=== PATIENT | male | born 1955 | race Caucasian/White ===

== ENCOUNTER → 2020-10-11 10:28 | Outpatient (BNVA) | payer OTHER, SELFPAY | PROVIDERS: PCP Internal Medicine; Referring Provider Internal Medicine; Visit Provider Internal Medicine | DX: Z13.89 Encounter for screening for other disorder (principal) ==

== ENCOUNTER → 2020-10-18 10:16 | Outpatient (BNVA) | payer OTHER, SELFPAY | PROVIDERS: PCP Internal Medicine; Visit Provider Hospitalist | DX: Z76.89 Persons encountering health services in other specified circumstances (principal) ==

== ENCOUNTER → 2021-01-07 13:12 | Outpatient (BNVA) | payer OTHER, SELFPAY | PROVIDERS: PCP Internal Medicine; Visit Provider Hospitalist ==

== ENCOUNTER → 2021-01-17 10:34 | Outpatient (BNVA) | payer OTHER, SELFPAY | PROVIDERS: PCP Internal Medicine; Visit Provider Hospitalist | DX: K21.9 Gastro-esophageal reflux disease without esophagitis (principal); J44.0 Chronic obstructive pulmonary disease with (acute) lower respiratory infection ==

== ENCOUNTER → 2022-02-03 10:29 | Outpatient (BNVA) | payer OTHER, SELFPAY | PROVIDERS: PCP Internal Medicine; Visit Provider Internal Medicine Pulmonary Disease ==

== ENCOUNTER 2022-02-07 10:56 | Outpatient (REF) | payer OTHER, SELFPAY ==
--- NOTE | ~2022-02-07 | XR_ITS ---
EXAMINATION: XR CHEST CLINICAL INFORMATION: COPD COMPARISON: None TECHNIQUE: 2 views of the chest were obtained. FINDINGS: The cardiac and mediastinal contours are normal. The lungs are well inflated. The lungs are clear. There is no pleural effusion or pneumothorax. There are degenerative changes of the spine. There are old left rib fractures. There are bilateral shoulder prostheses. XR/XR chest 2V IMPRESSION: Well-inflated lungs. No evidence for acute disease in the chest.
== END 2022-02-07 10:57 | disposition home or self-care (01) ==
LOC: HO.XRAY 10:56
PROVIDERS: PCP Internal Medicine; Visit Provider Hospitalist
DX: J44.1 Chronic obstructive pulmonary disease with (acute) exacerbation (principal)
CPT/HCPCS: 71046

== ENCOUNTER → 2022-02-16 11:34 | Outpatient (BNVA) | payer OTHER, SELFPAY | PROVIDERS: PCP Internal Medicine; Visit Provider Hospitalist | DX: J41.8 Mixed simple and mucopurulent chronic bronchitis (principal); Z87.891 Personal history of nicotine dependence | CPT/HCPCS: 99212 ==

== ENCOUNTER → 2022-03-07 12:58 | Outpatient (BNVA) | payer OTHER, SELFPAY | PROVIDERS: PCP Internal Medicine; Visit Provider Hospitalist | DX: Z13.89 Encounter for screening for other disorder (principal) ==

== ENCOUNTER → 2022-04-26 10:42 | Outpatient (BNVA) | payer OTHER, SELFPAY | PROVIDERS: PCP Internal Medicine; Visit Provider Hospitalist | DX: J44.9 Chronic obstructive pulmonary disease, unspecified (principal) ==

== ENCOUNTER 2022-05-12 14:18 | Outpatient (REF) | payer OTHER, SELFPAY | END 2022-05-12 14:19 | disposition home or self-care (01) | LOC: HO.LNP 14:18 | PROVIDERS: Visit Provider Hospitalist | DX: Z13.89 Encounter for screening for other disorder (principal) ==

== ENCOUNTER 2022-05-25 08:30 | Day surgery (SDC) | payer OTHER, SELFPAY ==
--- NOTE | 2022-05-24 10:11 | HO.ANESPROP2 ---
Documented by User: Dena Nolen NP 05/24/22 10:12 HPI - Anesthesia Eval Consult details Narrative: 67yo M for Bronchoscopy Fiberoptic [facility] Active Problems Active Problems: All Active Problems (Updated 03/07/22 @ 13:18 by Andrew Saha MD) Bronchitis (Acute) COPD exacerbation (Acute) COPD (chronic obstructive pulmonary disease) (Acute) Smoker (Acute) COPD (chronic obstructive pulmonary disease) (Acute) Mixed simple and mucopurulent chronic bronchitis (Acute) Past Medical History Medical History Bronchitis COPD (chronic obstructive pulmonary disease) Mixed simple and mucopurulent chronic bronchitis Smoker Social History Social History Patient Tobacco Use Status: Current everyday Tobacco user Tobacco use type: Cigarette Cigarette Packs Per Day: 0.5 Cigarettes Per Day: 10 Use of substances other than those prescribed or required for medical reasons: No Are you DNR?: No Advance Directives: No Advance Directives Information Provided: Yes Meds Allergies Allergy/AdvReac Type Severity Reaction Status Date / Time bupropion [From Wellbutrin] AdvReac Severe Seizure Verified 05/12/22 13:27 Home Medications Medication Instructions Recorded Confirmed Last Taken Type sertraline 100 mg tablet 100 mg PO DAILY 10/11/20 01/17/21 Unknown History hydroxyzine HCl 25 mg tablet 25 mg PO TID 01/07/21 01/17/21 Unknown History lorazepam 0.5 mg tablet 0.5 mg PO BID 05/12/22 01/17/21 Unknown History Exam Exam Date and Time: May 24, 2022 1011 Assessment and Plan Assessment Anesthesia Assessment: Chart Reviewed Documented by User: Yfn Rosario MD 05/25/22 09:28 [facility] Past Medical History Medical History Bronchitis COPD (chronic obstructive pulmonary disease) Mixed simple and mucopurulent chronic bronchitis Smoker Family History Family history of problems with anesthesia: No Surgical History History of Problems with Anesthesia: No Social History Social History Patient Tobacco Use Status: Current everyday Tobacco user Tobacco use type: Cigarette Cigarette Packs Per Day: 0.5 Cigarettes Per Day: 10 Use of substances other than those prescribed or required for medical reasons: No Are you DNR?: No Advance Directives: No Advance Directives Information Provided: Yes Meds Allergies Allergy/AdvReac Type Severity Reaction Status Date / Time bupropion [From Wellbutrin] AdvReac Severe Seizure Verified 05/12/22 13:27 Home Medications Medication Instructions Recorded Confirmed Last Taken Type sertraline 100 mg tablet 100 mg PO DAILY 10/11/20 01/17/21 Unknown History hydroxyzine HCl 25 mg tablet 25 mg PO TID 01/07/21 01/17/21 Unknown History lorazepam 0.5 mg tablet 0.5 mg PO BID 05/12/22 01/17/21 Unknown History Exam Airway Mallampati Class: I TM Dist: >3cm Neck ROM: Full Denture: Upper and Lower Heart: rrr Lungs: clear Assessment and Plan Final Anesthetic Review Family History of Problems with Anesthesia: No History of Problems with Anesthesia: No NPO: Yes ASA Class: III Final Preanesthetic Review: No Changes in Pt Med Stat, Meds/Allgs Chart Reviewed, Consent Obtained/Reviewed and Anes Risks/Benef Reviewed Patient Risk: Intermediate Procedure Risk: Low Anesthetic Plan Anesthetic Plan: GA Disposition: Standard PACU
[2022-05-25] VITALS (10 sets, daily range): BP systolic 121–142; BP diastolic 64–90; PULSE 90–110; RESP 17–23; TEMP 36–37.2; O2SAT 89–96; BMI 31.1
--- NOTE | ~2022-05-25 | XR_ITS ---
EXAMINATION: XR CHEST CLINICAL INFORMATION: Post bronchoscopy. COMPARISON: 02/07/2022. TECHNIQUE: AP view of the chest was obtained. FINDINGS: Stable appearance of the cardiomediastinal silhouette. Diffuse interstitial prominence with some questionable more focal hazy opacities in the medial right lower lobe. No pleural effusion or pneumothorax. Partially imaged bilateral shoulder arthroplasties. XR/XR chest 1V IMPRESSION: Diffuse interstitial prominence with equivocal more focal opacities in the medial right base. Findings are nonspecific and could be associated with bronchitis, reactive airways disease or atypical infections with an early developing infiltrate/aspiration in the right base.
[2022-05-25] MEDS: Lactated Ringers 1,000 ML 100 ML IVCONT (09:00)
--- NOTE | 2022-05-25 09:20 | MHC.SHP ---
Pre-Procedural Eval Section A Date of Service: 05/25/22 The patient is an INPATIENT: No Changes since office visit: No Cold of Flu in the past 2 weeks, No New Medical Problems, No Changes in Medication and No Patient answered all questions Section B Chief Complaint: pneumonia Allergies: Allergies Allergy/AdvReac Type Severity Reaction Status Date / Time bupropion [From Wellbutrin] AdvReac Severe Seizure Verified 05/12/22 13:27 Plan I have reviewed the history and physical and performed a pertinent physical examination on my patient. No changes have occurred unless specified.
[2022-05-25] MEDS: Albuterol/Iprat 2.5/0.5MG 3 ML AMPUL.NEB INHALE (11:05)
--- NOTE | 2022-05-26 23:10 | OP_ITS ---
SURGEON: Andrew Saha MD PREOPERATIVE DIAGNOSIS: Pneumonia. POSTOPERATIVE DIAGNOSIS: Pneumonia. No evidence of any endobronchial disease. PROCEDURE PERFORMED: ESTIMATED BLOOD LOSS: COMPLICATIONS: ANESTHESIA: General anesthesia. ASSISTANTS: SPECIMENS: INDICATION: Abnormal chest x-ray. DESCRIPTION OF PROCEDURE: After the patient was sedated and intubated, the flexible digital bronchoscope was inserted over the ET tube to the level of the trachea. The main case appeared to be normal. The patient did have some inflammation of the endobronchial mucosa with some evidence of chronic airway disease as well. The airways were evaluated up to the subsegmental level without any evidence of any endobronchial lesions or masses. He did have some increased swelling over the mucosa of the right upper lobe. The anterior segment where the pneumonia was found to be located in the question of a postobstructive process was indeed patent without any evidence of any foreign body or endobronchial disease. The apical segment appeared to have some degree of bronchomalacia and otherwise was dynamic, but no evidence of any foreign bodies or growth. The posterior segment appeared to be intact. The bronchoscope was navigated to the right upper lobe, where both micro and cytologic brushings introduced into the right upper lobe to the appropriate locations. Also, right-sided washings were also collected, sent for microbiology and also cytology. Using forceps, transbronchial biopsies were collected from the right upper lobe, primarily the anterior segment, also some endobronchial biopsies were also done. Specimens sent in formalin to the pathology lab. No evidence of any significant bleeding noted. The bronchoscope was then removed. The total endoscopic time was approximately 15 minutes. The patient tolerated the procedure well. Vital signs were stable throughout the procedure. No complications. MD FERNANDO Bauer/MODL / [id number]
--- NOTE | 2022-05-27 23:33 | PM.OP ---
Brief Operative Note Date of Service: 05/27/22 Pre-op diagnosis: pneumonia Post-op diagnosis: same Procedure: bronchsocopy with transbronchial biopsies, brushings and washings Surgeon: Andrew Saha MD Anesthesia: GETA Was an Toll Collector Supervisor used for this Procedure?: No Estimated blood loss (mL): 0 Pathology: other (RUL transbronchial and bronchial biopsies) Condition: stable Disposition: same day
== END 2022-05-25 12:32 | disposition home or self-care (01) ==
PROVIDERS: PCP Internal Medicine; Visit Provider Hospitalist
PROC: 0BJ08ZZ Inspection of Tracheobronchial Tree, Via Natural or Artificial Opening Endoscopic (ICD-10-PCS; CPT 31622; principal; 2022-05-25 09:30)
DX: J44.0 Chronic obstructive pulmonary disease with (acute) lower respiratory infection (principal); F17.210 Nicotine dependence, cigarettes, uncomplicated; J41.8 Mixed simple and mucopurulent chronic bronchitis; J18.9 Pneumonia, unspecified organism; J45.998 Other asthma; R06.02 Shortness of breath; Z79.51 Long term (current) use of inhaled steroids; Z79.52 Long term (current) use of systemic steroids; Z79.899 Other long term (current) drug therapy; Z88.8 Allergy status to other drugs, medicaments and biological substances
CPT/HCPCS: 31623; 31628; 31625; 71045; 87071; 87102; 87116; 87205; 88112; 88305; 94640; J0171; J0330; J1100; J2250; J2370; J2405; J3010

== ENCOUNTER 2023-02-02 08:56 | Outpatient (REF) | payer MEDICARE, SELFPAY ==
--- NOTE | 2023-02-02 13:10 | PFT_ITS ---
INDICATION: COPD. SPIROMETRY: FEV1 to FVC of 44% with an FEV1 of 1.46 L, which is 47% predicted and FVC of 3.33 L, which is 79% predicted. There was a significant response to bronchodilators noted. Maximum voluntary ventilation 36% predicted. LUNG VOLUMES: Total lung capacity 104% predicted with a residual volume of 182% predicted and an expiratory residual volume of 17% predicted. DIFFUSION CAPACITY: DLCO 56% predicted. COMPARISON: 2019. INTERPRETATION: There is an obstructive ventilatory defect consistent with severe COPD. There was a significant response to bronchodilators noted, also severe decrease in the maximum voluntary ventilation secondary to deconditioning and also worsen dynamic inspiratory capacity. Lung volumes with significant air trapping due to the COPD and there is some [id number] diffusion impairment. When compare to 2020, there is a significant decrease in the FVC, significant decrease in the FEV1. No significant change in total lung capacity and a trend increase in a diffusion capacity. Clinical correlation warranted. MD FERNANDO Bauer/MODL / [id number]
== END 2023-02-02 08:57 | disposition home or self-care (01) ==
LOC: HO.RESP 08:56
PROVIDERS: PCP Internal Medicine; Visit Provider Hospitalist
DX: J44.0 Chronic obstructive pulmonary disease with (acute) lower respiratory infection (principal)
CPT/HCPCS: 94060; 94727; 94729

== ENCOUNTER 2023-03-21 09:32 | Outpatient (REF) | payer MEDICARE, SELFPAY | END 2023-03-21 09:33 | disposition home or self-care (01) | LOC: HO.XRAY 09:32 | PROVIDERS: PCP Internal Medicine; Visit Provider Hospitalist | DX: J18.9 Pneumonia, unspecified organism (principal); J44.9 Chronic obstructive pulmonary disease, unspecified; F17.200 Nicotine dependence, unspecified, uncomplicated; Z71.6 Tobacco abuse counseling | CPT/HCPCS: 99212 ==

== ENCOUNTER 2023-07-10 08:35 | Outpatient (AMB) | payer MEDICARE, SELFPAY ==
[2023-07-10 08:43] VITALS: BP 128/70; PULSE 85; O2SAT 92; BMI 32.8
--- NOTE | 2023-07-10 08:43 | A.OFFVIS_ITS ---
Intake Vital Signs 07/10/23 08:43 Height 5 ft 8 in Weight 216 lb 0.848 oz BMI 32.8 BP 128/70 Blood Pressure Location Lt brachial Position Sitting Pulse 85 Pulse Source Pulse Oximeter Pulse Oximetry (%) 92 Oxygen Delivery Method Room Air Intake Visit Reasons: wheeze Senior Analyst Required: No Allergies bupropion [From Wellbutrin] Adverse Reaction (Severe, Verified 07/10/23 08:46) Seizure HPI HPI Comments History of Present Illness Details 68-year-old gentleman with known tobacco dependency and COPD. Still see continues to have productive cough with yellowish sputum. Moderate a mount. He also complains of dyspnea on exertion. He feels that he has been doing less because he does 1 get dyspneic. We talked about the importance of exercise. At this point the patient continues to smoke. He is motivated to quitting but is still having hard time doing so. Still having hard time with the smoking. He does have the Nicorette gum at home and is going to start using it. He has cut down significantly. He states that when he was younger he was smoking 4 packs a day now he is down to less than a pack. Explained to him the goals to should be to complete completely. He is getting dyspneic so therefore we did of 6 minutes walk test the patient does not qualify for oxygen supplementation. 03/21/2023 the patient is here for a pulmonary follow-up visit. Overall the patient is doing well. He denies any weight loss or night sweats or chest pain. I am concerned about his last CT scan demonstrating the masslike consolidation. He did undergo bronchoscopy without any evidence of any malignancy. He was also treated with antibiotics. However I do not see any post treatment imaging studies. I will request a chest x-ray. In addition to this I will look into of his next CT scan scheduled to the lung cancer screening program. If his chest x-ray is abnormal going to request a CT scan of the chest. He continues to smoke cigarettes. He has been trying to cut down. He has been struggling with that. He does continue to use his respiratory medications as prescribed. He also has oxygen at home but he has not been using it. I will go ahead and discontinue it at this time. If he becomes more symptomatic we can always retest to see if he needs it. 07/10/2023 the patient is here for pulmonary follow-up visit. He continues have difficulty with breathing. He recently status some prednisone. He is having worsening productive cough with yellowish phlegm. Sometimes the cough and the congestion wakes him up in the Sleep. Patient stands that is likely all from the smoking. The patient has had bad pneumonia in the past. Will go ahead and start on doxycycline. Did not respond to azithromycin. The patient also needs some prednisone as he is having wheezing. We did talk about his lung cancer screening CT scan. I do believe he is due for July of 2023. I will have our Lung Cancer program look into his neck state. Otherwise if his symptoms worsen we may have to move up the CT scan. The patient denies any significant weight loss or night sweats. Denies hemoptysis. Unfortunately continues smoking cigarettes. [facility]LY [facility] Medical History Bronchitis COPD (chronic obstructive pulmonary disease) Mixed simple and mucopurulent chronic bronchitis Smoker Social History Patient Tobacco Use Status: Current everyday Tobacco user Tobacco use type: Cigarette Cigarette Packs Per Day: 0.5 Cigarettes Per Day: 10 Review of Systems Const Denies daytime sleepiness, Denies excessive sweating, Denies fatigue, Denies fever(s), Denies lethargy, Denies malaise, Denies night sweats, Denies snoring and Denies weight loss Eyes Denies blurry vision and Denies itchy eyes ENT Denies nasal congestion, Denies post nasal drip, Denies sinus pain, Denies sinus pressure and Denies other ( Thrush) Card Denies chest pain, Denies pedal edema, Denies dyspnea, Denies orthopnea and Denies paroxysmal nocturnal dyspnea Resp Reports change in phlegm color, Reports chest congestion, Reports cough, Denies hemoptysis, Denies excessive phlegm production, Denies dyspnea, Denies snoring and Reports wheezing GI Denies abdominal pain and Denies heartburn Musc Denies myalgias, Denies arthralgias and Denies joint swelling Skin/Breast Denies rash Neuro Denies memory loss and Denies seizure-like activity Psych Denies abnormal sleep pattern, Denies anxiety and Denies memory loss Endo Denies excessive sweating, Denies fatigue and Denies heat intolerance Zak/Lymph Denies easy bruising Aller/Immun Denies itchy eyes, Denies seasonal rhinorrhea and Reports wheezing Physical Exam Vital Signs: Last Vital Signs Pulse 85 07/10/23 08:43 BP 128/70 07/10/23 08:43 Pulse Ox 92 07/10/23 08:43 Oxygen Delivery Method Room Air 07/10/23 08:43 BMI result Body Mass Index 32.8 Const General: alert Neck Neck: Yes normal visual inspection, Yes full ROM and Yes no lymphadenopathy Chest Chest palpation & inspection: normal inspection of the chest Resp Auscultation: rhonchi, wheezes and diminished lung sounds Cardio Rate: regular rate Rhythm: regular rhythm Heart sounds: S1 normal heart sound present and S2 normal heart sound present GI Palpation (GI): Soft to palpation and nontender Auscultation: normal bowel sounds Skin General skin exam: rashes and/or lesions noted Assessment & Plan Assessment & Plan (1) COPD (chronic obstructive pulmonary disease): Code(s): J44.9 - Chronic obstructive pulmonary disease, unspecified Qualifiers: COPD type: COPD with acute lower respiratory infection Qualified Code(s): J44.0 - Chronic obstructive pulmonary disease with (acute) lower respiratory infection (2) Smoker: Code(s): F17.200 - Nicotine dependence, unspecified, uncomplicated (3) Mixed simple and mucopurulent chronic bronchitis: Code(s): J41.8 - Mixed simple and mucopurulent chronic bronchitis (4) Pneumonia: Code(s): J18.9 - Pneumonia, unspecified organism Plan continue Duoneb QID continue Symbicort continue Daliresp 500 start Doxyxycline restart Prednisone with slow taper Discontinue oxygen Nicotene gum as needed LDCT lung cancer screening program at [facility] F/U 4-6 months Medications: New doxycycline monohydrate 100 mg PO BID 21 days 42 tabs 0RF prednisone 20 mg (2 x 10 mg) PO DAILY 30 days 60 tabs 2RF Refilled ipratropium-albuterol 0.5 mg-3 mg(2.5 mg base)/3 mL 3 mL inhalation BID 30 days 180 mL 11RF J44.9 - Chronic obstructive pulmonary disease, unspecified Quality Reporting (2019) Adult ([facility] 13801/17/69) Smoking risk assessment performed?: Yes Patient Tobacco Use Status: Current everyday Tobacco user Coding Level of Care Code Est Pt Level 4 (63268) Diagnoses COPD (chronic obstructive pulmonary disease) J44.0 COPD type: COPD with acute lower respiratory infection Smoker F17.200 Mixed simple and mucopurulent chronic bronchitis J41.8 Pneumonia J18.9 Time Spent (min) 18
== END 2023-07-10 08:57 | disposition home or self-care (01) ==
PROVIDERS: PCP Internal Medicine; Visit Provider Hospitalist
DX: J44.0 Chronic obstructive pulmonary disease with (acute) lower respiratory infection (principal); F17.200 Nicotine dependence, unspecified, uncomplicated; J18.9 Pneumonia, unspecified organism
CPT/HCPCS: 99214

== ENCOUNTER → 2023-07-10 08:35 | Outpatient (BNVA) | payer MEDICARE, SELFPAY | PROVIDERS: PCP Internal Medicine; Visit Provider Hospitalist | DX: J44.0 Chronic obstructive pulmonary disease with (acute) lower respiratory infection (principal); J18.9 Pneumonia, unspecified organism; J41.8 Mixed simple and mucopurulent chronic bronchitis; F17.210 Nicotine dependence, cigarettes, uncomplicated; Z79.899 Other long term (current) drug therapy | CPT/HCPCS: 99212 ==

== ENCOUNTER 2023-09-04 10:02 | Outpatient (AMB) | payer MEDICARE, SELFPAY ==
[2023-09-04 10:07] VITALS: PULSE 88; O2SAT 93; BMI 30.4
--- NOTE | 2023-09-04 10:07 | MHC.OFFVIS ---
Intake Vital Signs 09/04/23 10:07 Height 5 ft 8 in Weight 200 lb BMI 30.4 Pulse 88 Pulse Source Pulse Oximeter Pulse Oximetry (%) 93 Oxygen Delivery Method Room Air Intake Visit Reasons: wheeze Delinquency Prevention Officer Required: No Allergies bupropion [From Wellbutrin] Adverse Reaction (Severe, Verified 09/04/23 10:08) Seizure HPI HPI Comments History of Present Illness Details 68-year-old gentleman with known tobacco dependency and COPD. Still see continues to have productive cough with yellowish sputum. Moderate a mount. He also complains of dyspnea on exertion. He feels that he has been doing less because he does 1 get dyspneic. We talked about the importance of exercise. At this point the patient continues to smoke. He is motivated to quitting but is still having hard time doing so. Still having hard time with the smoking. He does have the Nicorette gum at home and is going to start using it. He has cut down significantly. He states that when he was younger he was smoking 4 packs a day now he is down to less than a pack. Explained to him the goals to should be to complete completely. He is getting dyspneic so therefore we did of 6 minutes walk test the patient does not qualify for oxygen supplementation. 03/21/2023 the patient is here for a pulmonary follow-up visit. Overall the patient is doing well. He denies any weight loss or night sweats or chest pain. I am concerned about his last CT scan demonstrating the masslike consolidation. He did undergo bronchoscopy without any evidence of any malignancy. He was also treated with antibiotics. However I do not see any post treatment imaging studies. I will request a chest x-ray. In addition to this I will look into of his next CT scan scheduled to the lung cancer screening program. If his chest x-ray is abnormal going to request a CT scan of the chest. He continues to smoke cigarettes. He has been trying to cut down. He has been struggling with that. He does continue to use his respiratory medications as prescribed. He also has oxygen at home but he has not been using it. I will go ahead and discontinue it at this time. If he becomes more symptomatic we can always retest to see if he needs it. 07/10/2023 the patient is here for pulmonary follow-up visit. He continues have difficulty with breathing. He recently status some prednisone. He is having worsening productive cough with yellowish phlegm. Sometimes the cough and the congestion wakes him up in the Sleep. Patient stands that is likely all from the smoking. The patient has had bad pneumonia in the past. Will go ahead and start on doxycycline. Did not respond to azithromycin. The patient also needs some prednisone as he is having wheezing. We did talk about his lung cancer screening CT scan. I do believe he is due for July of 2023. I will have our Lung Cancer program look into his neck state. Otherwise if his symptoms worsen we may have to move up the CT scan. The patient denies any significant weight loss or night sweats. Denies hemoptysis. Unfortunately continues smoking cigarettes. 09/04/2023 the patient is here for a pulmonary follow-up visit. The patient overall has been doing better. He still come he is to smoke cigarettes although he is cutting down. He is off the prednisone altogether. The patient continues in his respiratory therapy with good effect. He did have a CT scan of the chest to the lung cancer screening program in July 2023 demonstrating stable findings with unchanged pulmonary nodules. The patient will continue with current respiratory therapy will continue to cut down completely until he stops smoking. If the patient has any issues prior to the next visit he is to call for an earlier appointment otherwise follow-up in the 2023. [facility] Medical History Bronchitis COPD (chronic obstructive pulmonary disease) Mixed simple and mucopurulent chronic bronchitis Smoker Social History Patient Tobacco Use Status: Current everyday Tobacco user Tobacco use type: Cigarette Cigarette Packs Per Day: 0.5 Cigarettes Per Day: 10 Review of Systems Const Denies daytime sleepiness, Denies excessive sweating, Denies fatigue, Denies fever(s), Denies lethargy, Denies malaise, Denies night sweats, Denies snoring and Denies weight loss Eyes Denies blurry vision and Denies itchy eyes ENT Denies nasal congestion, Denies post nasal drip, Denies sinus pain, Denies sinus pressure and Denies other ( Thrush) Card Denies chest pain, Denies pedal edema, Denies dyspnea, Denies orthopnea and Denies paroxysmal nocturnal dyspnea Resp Reports change in phlegm color, Reports chest congestion, Reports cough, Denies hemoptysis, Denies excessive phlegm production, Denies dyspnea, Denies snoring and Reports wheezing GI Denies abdominal pain and Denies heartburn Musc Denies myalgias, Denies arthralgias and Denies joint swelling Skin/Breast Denies rash Neuro Denies memory loss and Denies seizure-like activity Psych Denies abnormal sleep pattern, Denies anxiety and Denies memory loss Endo Denies excessive sweating, Denies fatigue and Denies heat intolerance Zak/Lymph Denies easy bruising Aller/Immun Denies itchy eyes, Denies seasonal rhinorrhea and Reports wheezing Physical Exam Vital Signs: Last Vital Signs Pulse 88 09/04/23 10:07 Pulse Ox 93 09/04/23 10:07 Oxygen Delivery Method Room Air 09/04/23 10:07 BMI result Body Mass Index 30.4 Const General: alert Neck Neck: Yes normal visual inspection, Yes full ROM and Yes no lymphadenopathy Chest Chest palpation & inspection: normal inspection of the chest Resp Effort & Inspection: normal respiratory effort Auscultation: rhonchi, wheezes and diminished lung sounds Cardio Rate: regular rate Rhythm: regular rhythm Heart sounds: S1 normal heart sound present and S2 normal heart sound present GI Palpation (GI): Soft to palpation and nontender Auscultation: normal bowel sounds Skin General skin exam: rashes and/or lesions noted Assessment & Plan Assessment & Plan (1) COPD (chronic obstructive pulmonary disease): Code(s): J44.9 - Chronic obstructive pulmonary disease, unspecified Qualifiers: COPD type: COPD with acute lower respiratory infection Qualified Code(s): J44.0 - Chronic obstructive pulmonary disease with (acute) lower respiratory infection (2) Smoker: Code(s): F17.200 - Nicotine dependence, unspecified, uncomplicated (3) Mixed simple and mucopurulent chronic bronchitis: Code(s): J41.8 - Mixed simple and mucopurulent chronic bronchitis Plan continue Duoneb QID continue Symbicort continue Daliresp 500 Nicotene gum as needed LDCT lung cancer screening program at [facility] F/U 6-8 months Quality Reporting (2019) Adult ([facility] 138/01/17/69) Smoking risk assessment performed?: Yes Patient Tobacco Use Status: Current everyday Tobacco user Coding Level of Care Code Est Pt Level 4 (86668) Diagnoses Chronic obstructive pulmonary disease with acute lower respiratory infection J44.0 COPD type: COPD with acute lower respiratory infection Smoker F17.200 Mixed simple and mucopurulent chronic bronchitis J41.8 Time Spent (min) 16
== END 2023-09-04 10:26 | disposition home or self-care (01) ==
PROVIDERS: PCP Internal Medicine; Visit Provider Hospitalist
DX: J44.0 Chronic obstructive pulmonary disease with (acute) lower respiratory infection (principal); F17.200 Nicotine dependence, unspecified, uncomplicated
CPT/HCPCS: 99214

== ENCOUNTER → 2023-09-04 10:02 | Outpatient (BNVA) | payer MEDICARE, SELFPAY | PROVIDERS: PCP Internal Medicine; Visit Provider Hospitalist | DX: J44.0 Chronic obstructive pulmonary disease with (acute) lower respiratory infection (principal); J41.8 Mixed simple and mucopurulent chronic bronchitis; F17.210 Nicotine dependence, cigarettes, uncomplicated | CPT/HCPCS: 99212 ==

== ENCOUNTER 2025-02-24 15:00 | Outpatient (AMB) | payer MEDICARE, SELFPAY ==
[2025-02-24 15:05] VITALS: BP 110/56; PULSE 89; O2SAT 90; BMI 32.8
--- NOTE | 2025-02-24 15:05 | MHC.OFFVIS ---
Vital Signs 02/24/25 15:05 Height 5 ft 8 in Weight 216 lb 0.848 oz BMI 32.8 BP 110/56 L Blood Pressure Location Rt brachial Position Sitting Pulse 89 Pulse Source Pulse Oximeter Pulse Oximetry (%) 90 L Oxygen Delivery Method Room Air Intake Visit Reasons: COPD Allergies bupropion [From Wellbutrin] Adverse Reaction (Severe, Verified 02/24/25 15:07) Seizure HPI Comments Details: 69-year-old gentleman with known tobacco dependency and COPD. Still see continues to have productive cough with yellowish sputum. Moderate a mount. He also complains of dyspnea on exertion. He feels that he has been doing less because he does 1 get dyspneic. We talked about the importance of exercise. At this point the patient continues to smoke. He is motivated to quitting but is still having hard time doing so. Still having hard time with the smoking. He does have the Nicorette gum at home and is going to start using it. He has cut down significantly. He states that when he was younger he was smoking 4 packs a day now he is down to less than a pack. Explained to him the goals to should be to complete completely. He is getting dyspneic so therefore we did of 6 minutes walk test the patient does not qualify for oxygen supplementation. 03/21/2023 the patient is here for a pulmonary follow-up visit. Overall the patient is doing well. He denies any weight loss or night sweats or chest pain. I am concerned about his last CT scan demonstrating the masslike consolidation. He did undergo bronchoscopy without any evidence of any malignancy. He was also treated with antibiotics. However I do not see any post treatment imaging studies. I will request a chest x-ray. In addition to this I will look into of his next CT scan scheduled to the lung cancer screening program. If his chest x-ray is abnormal going to request a CT scan of the chest. He continues to smoke cigarettes. He has been trying to cut down. He has been struggling with that. He does continue to use his respiratory medications as prescribed. He also has oxygen at home but he has not been using it. I will go ahead and discontinue it at this time. If he becomes more symptomatic we can always retest to see if he needs it. 07/10/2023 the patient is here for pulmonary follow-up visit. He continues have difficulty with breathing. He recently status some prednisone. He is having worsening productive cough with yellowish phlegm. Sometimes the cough and the congestion wakes him up in the Sleep. Patient stands that is likely all from the smoking. The patient has had bad pneumonia in the past. Will go ahead and start on doxycycline. Did not respond to azithromycin. The patient also needs some prednisone as he is having wheezing. We did talk about his lung cancer screening CT scan. I do believe he is due for July of 2023. I will have our Lung Cancer program look into his neck state. Otherwise if his symptoms worsen we may have to move up the CT scan. The patient denies any significant weight loss or night sweats. Denies hemoptysis. Unfortunately continues smoking cigarettes. 09/04/2023 the patient is here for a pulmonary follow-up visit. The patient overall has been doing better. He still come he is to smoke cigarettes although he is cutting down. He is off the prednisone altogether. The patient continues in his respiratory therapy with good effect. He did have a CT scan of the chest to the lung cancer screening program in July 2023 demonstrating stable findings with unchanged pulmonary nodules. The patient will continue with current respiratory therapy will continue to cut down completely until he stops smoking. If the patient has any issues prior to the next visit he is to call for an earlier appointment otherwise follow-up in the springtime of 2023. 02/24/2025 the patient is here for a pulmonary follow-up visit. Overall he is doing fair. He is starting to develop worsening cough chest tightness and wheezing. He is waking up choking with phlegm. Moderate severity. Unfortunately continues to smoke cigarettes. He did try the Wellbutrin previously in the developed a significant seizure. Therefore Chantix would also be relatively contraindicated because the seizure history. The patient has not had a lung cancer screening since 2022. He lost insurance and he has been without any regular care. Will go ahead and refer him to the lung cancer screening program here. In the meantime he needs to be the plans with all his inhalers and respiratory medicines. I will do so. On exam he does have significant wheezing and rhonchi. Will go ahead and start him on azithromycin and also prednisone taper. The patient will continue working on smoking cessation. I will send a Nicorette gum. He did he tried and failed already the nicotine patch. Will follow-up in the fall. If he has any issues prior to that he will call for an earlier assessment. [facility] Medical History Bronchitis COPD (chronic obstructive pulmonary disease) Mixed simple and mucopurulent chronic bronchitis Smoker Social History Patient Tobacco Use Status: Current everyday Tobacco user Tobacco use type: Cigarette Cigarette Packs Per Day: 0.5 Cigarettes Per Day: 10 Review of Systems Const Denies fever(s) Eyes Denies blurry vision and Denies itchy eyes ENT Denies nasal congestion and Denies post nasal drip Card Denies chest pain and Denies dyspnea Resp Reports change in phlegm color, Reports chest congestion, Reports cough, Denies hemoptysis, Denies excessive phlegm production, Denies dyspnea and Reports wheezing GI Denies abdominal pain and Denies heartburn Musc Denies myalgias, Denies arthralgias and Denies joint swelling Skin/Breast Denies rash Neuro Denies memory loss and Denies seizure-like activity Psych Denies abnormal sleep pattern, Denies anxiety and Denies memory loss Endo Denies heat intolerance Zak/Lymph Denies easy bruising Aller/Immun Denies itchy eyes, Denies seasonal rhinorrhea and Reports wheezing Physical Exam Vital Signs: Last Vital Signs Pulse 89 02/24/25 15:05 BP 110/56 L 02/24/25 15:05 Pulse Ox 90 L 02/24/25 15:05 Oxygen Delivery Method Room Air 02/24/25 15:05 BMI result Body Mass Index 32.8 Const General: alert Neck Neck: Yes normal visual inspection, Yes full ROM and Yes no lymphadenopathy Chest Chest palpation & inspection: normal inspection of the chest Resp Effort & Inspection: normal respiratory effort Auscultation: rhonchi, wheezes and diminished lung sounds Cardio Rate: regular rate Rhythm: regular rhythm Heart sounds: S1 normal heart sound present and S2 normal heart sound present GI Palpation (GI): Soft to palpation and nontender Auscultation: normal bowel sounds Skin General skin exam: rashes and/or lesions noted Assessment & Plan Assessment & Plan (1) Smoker: Code(s): F17.200 - Nicotine dependence, unspecified, uncomplicated Category: Social Hx (2) COPD (chronic obstructive pulmonary disease): Code(s): J44.9 - Chronic obstructive pulmonary disease, unspecified Category: Medical Qualifiers: COPD type: COPD with acute lower respiratory infection Qualified Code(s): J44.0 - Chronic obstructive pulmonary disease with (acute) lower respiratory infection (3) Mixed simple and mucopurulent chronic bronchitis: Code(s): J41.8 - Mixed simple and mucopurulent chronic bronchitis Category: Medical Plan continue Duoneb QID continue Symbicort start Azithromycin MWF start prednisone taper Nicotene gum as needed LDCT lung cancer screening program at [facility] previously. Referring to [facility] now F/U 6 months Orders: Referrals Lung Cancer Screening Referral F17.200 - Nicotine dependence, unspecified, uncomplicated Medications: New azithromycin Take 1 tablet on Sunday/Sunday/Sunday 250 mg PO 3XW 12 tabs 1RF 28 days K21.9 - Gastro-esophageal reflux disease without esophagitis nicotine (polacrilex) (Nicorette) 2 mg buccal Q2H 120 ea 5RF 30 days prednisone PO daily; Take 2 tabs daily x 5 days, then 1 tablet daily x 5 days 15 tabs 0RF 10 days Changed From albuterol sulfate 90 mcg/actuation (ProAir HFA) 2 puffs PO Q4-6H PRN 51 grams 3RF for wheezing J41.8 - Mixed simple and mucopurulent chronic bronchitis To albuterol sulfate 90 mcg/actuation 2 puffs PO Q6H PRN 8.5 grams 11RF for wheezing J41.8 - Mixed simple and mucopurulent chronic bronchitis Refilled ipratropium-albuterol 0.5 mg-3 mg(2.5 mg base)/3 mL 3 mL inhalation BID 180 mL 11RF 30 days J44.9 - Chronic obstructive pulmonary disease, unspecified budesonide-formoterol 160-4.5 mcg/actuation (Symbicort) 2 puffs inhalation BID 10.2 grams 11RF 30 days J44.9 - Chronic obstructive pulmonary disease, unspecified Coding Level of Care Code Est Pt Level 4 (26361) Complex EM visit Add On G2211 Diagnoses Smoker F17.200 Chronic obstructive pulmonary disease with acute lower respiratory infection J44.0 COPD type: COPD with acute lower respiratory infection Mixed simple and mucopurulent chronic bronchitis J41.8 Time Spent (min) 18
--- OUTSIDE RECORDS SUMMARY | 2025-02-24 17:51 | XMS_ITS | Patient Health Record ---
Author Organization [facility] Address [address], [place] [id number] Care Team Providers Care Etl Data Architect Name Role Phone No, PCP Primary Care Provider Yanet Arteaga Unavailable [phone] Reason For Referral No Information Encounters Encounter Location Date Provider Diagnosis [facility] [address], [place] [phone] 08/13/2024 Yanet Soriano Plan Of Treatment No Information Insurance Providers Payer Name Payer Address Payer Phone Subscriber Number Group Number Insured Name Patient Relationship to Insured Coverage Start Date Coverage End Date Insurance Pending [address] [facility] [place] [address] Tu Ramon Self - patient is the insured
--- OUTSIDE RECORDS SUMMARY | 2025-02-24 17:51 | XMS_ITS ---
Author Organization [facility] Address [address] [place], [place] [id number] Care Team Providers Care Motor Tune Up Specialist Name Role Phone No, PCP Primary Care Provider Yanet Arteaga Unavailable [phone] REASON FOR VISIT Call [employer] to expedite application Encounters Encounter Location Date Provider Diagnosis [address] [place], [place] [phone] 08/13/2024 Yanet Soriano Plan Of Treatment No Information Progress Notes * Tu RONQUILLODOB: [birth year] (69 yo M)Acc No.[id number]:08/13/2024 Case Management New Patient:?Tu Ronquillo Provider:?Yanet Soriano :1955???Age:69 Y???Sex:Male Yousif e:08/13/2024 Address:[address], [id number] Pcp:PCP No Subjective: * Chief Complaints: * ???1. Call [employer] to ex pedite application. * HPI: ???Social Service:?Action Taken?[employer]? Called [employer] to expedite application. stated that Insurance will be active within 72 hours. 08/13/24 gd2.? Objective: Assessment: Plan: * Treatment: * Images: Billing Information: * Visit Code:? * Procedure Codes:? Care Plan Details* * Sign off status: Completed true * Provider:?Yanet Soriano Date:?08/13/2024 Generated for Margy larry/Eliana/eTransmzaki on:?02/24/2025 05:51 PM EDT History and Physical Notes * HPI (History of Present Illness) Category Sub-Category Detail Notes Social Service Action Taken [facility] : Called [facility] to expedite application. stated that Insurance will be active within 72 hours. 08/13/24 gd2
== END 2025-02-24 15:24 | disposition home or self-care (01) ==
LOC: HO.HPS 15:02
PROVIDERS: PCP Internal Medicine; Visit Provider Hospitalist
DX: F17.200 Nicotine dependence, unspecified, uncomplicated (principal); J44.0 Chronic obstructive pulmonary disease with (acute) lower respiratory infection; J41.8 Mixed simple and mucopurulent chronic bronchitis
CPT/HCPCS: 99214; G2211

== ENCOUNTER → 2025-02-24 15:00 | Outpatient (BNVA) | payer SELFPAY | PROVIDERS: PCP Internal Medicine; Visit Provider Hospitalist | DX: J44.0 Chronic obstructive pulmonary disease with (acute) lower respiratory infection (principal); F41.8 Other specified anxiety disorders; F17.210 Nicotine dependence, cigarettes, uncomplicated | CPT/HCPCS: 99212 ==

== ENCOUNTER 2025-05-15 10:08 | Outpatient (AMB) | payer MEDICARE, SELFPAY ==
--- NOTE | 2025-05-15 07:48 | MHC.OFFVIS ---
Intake Visit Reasons: Current Smoker Allergies bupropion (From Wellbutrin) Adverse Reaction (Severe, Verified 02/24/25 15:07) Seizure HPI HPI Current Smoker: Details: Initial visit for this 70yo smoker with a 50+PYH. Patient started smoking at age 11 for 59 years at 1ppd. Max at 2ppd. Currently at 1ppd. . Denies marijuana use. Denies second hand smoke exposure. Denies exposure to chemicals or substances like asbestos. . Denies known family history of lung cancer. Denies personal history of cancers. . Denies chest CT in last year. Previously in LDCT program at [facility]. Last scan on record 07/2023 was a Lung RADS 2. . Denies recent travel outside the [place]. Denies recent respiratory illness or recent hospitalization for respiratory issues. History testing positive for COVID. Admits receiving COVID Vaccine. . Denies fever, chills, new/worsening cough, hemoptysis, hoarseness or dysphagia. Denies significant chest pain, significant dyspnea or unintentional weight loss. Patient Lung Cancer Screening Questionnaire reviewed with patient by provider. . Shared Decision Making Completed. Patient meets criteria. Discussed in detail with patient, the risk vs benefit of LDCT screening. Patient consents to proceed with scan. Discussed smoking cessation. [facility] Medical History (Updated 05/15/25 @ 10:16 by Audra Vargas PA-C) Nicotine dependence, cigarettes, uncomplicated COPD (chronic obstructive pulmonary disease) Bronchitis Mixed simple and mucopurulent chronic bronchitis Surgical History (Updated 05/15/25 @ 10:18 by Audra Vargas PA-C) History of hand surgery History of bronchoscopy Social History (Updated 05/15/25 @ 10:16 by Audra Vargas PA-C) Patient Tobacco Use Status: Current everyday Tobacco user Tobacco use type: Cigarette Years Smoked: (onset 11yo, 1ppd x 59yrs - 50+PYH) Assessment & Plan Assessment & Plan (1) Nicotine dependence, cigarettes, uncomplicated: Comment: (onset 11yo, 1ppd x 59yrs - 50+PYH) Code(s): F17.210 - Nicotine dependence, cigarettes, uncomplicated Category: Medical Plan: - SDM visit completed today in office. - Patient meets criteria for LDCT for lung cancer screening purposes and is asymptomatic. - Smoking cessation counseling offered. Patients can always call [phone]. - Will arrange for a LDCT scan of the chest for screening purposes at [facility]. - Risks, benefits, and alternatives were discussed in detail and the patient agrees to proceed. - Risks discussed include but are not limited to: radiation exposure, anxiety during testing and while awaiting results, false negatives, false positives and possibility of additional intervention such as further imaging or surgical procedures for benign disease. - Benefits are obviously detection of lung cancer at an early stage which can lead to improved outcomes. - Discussed the importance of screening program compliance with adherence to yearly LDCT scan as scheduled - or sooner interval scans for personalized screening regimen. - Discussed follow up plan. Our office will send a letter discussing results and if needed set up phone call and office visit based on CT findings. - Patient educated on results categorization and the management decisions for suspicious findings potentially found on the screening LDCT scan. Any patient with a Lung RADS score of 3 or 4 will be reviewed by a multidisciplinary team at [facility] to form a plan of action in regards to scan findings. - If further work up is warranted for a suspicious lung finding this will be followed by the Lung Cancer Screening program in conjunction with the Thoracic Surgery Department at [facility]. - A copy of the office note and LDCT will be sent to the patient's PCP - as well as documentation on any associated further plans of care. - Incidental findings on LDCT are the PCP's responsibility. These findings are indicated with an S finding on the LDCT Assessment. A note discussing the findings will be sent to the PCP who is then responsible for further management. - All questions answered.? Coding Level of Care Code Lung Cancer Screening G0296 Diagnoses Nicotine dependence, cigarettes, uncomplicated F17.210
--- OUTSIDE RECORDS SUMMARY | 2025-05-15 10:24 | XMS_ITS | Patient Health Record ---
Author Organization [facility] Address [address], [place] [phone] Care Team Providers Care Distribution Systems Serviceperson Name Role Phone [employer] - DO NOT USE, no PCP Primary Care Prov ider Unavailable Yanet Soriano Unavailable [phone] Reason For Referral No Information Encounters Encounter Location Date Provider Diagnosis [facility] [address], [place] [phone] 08/13/2024 Yanet Soriano Plan Of Treatment No Information Insurance Providers Payer Name Payer Address Payer Phone Subscriber Number Group Number Insured Name Patient Relationship to Insured Coverage Start Date Coverage End Date Insurance Pending [id number] [facility] [place] [id number] Tu Ramon Self - patient is the insured
== END 2025-05-15 10:24 | disposition home or self-care (01) ==
LOC: HO.HPS 10:08
PROVIDERS: PCP Internal Medicine; Referring Provider Hospitalist; Visit Provider Physician Assistant Medical
DX: F17.210 Nicotine dependence, cigarettes, uncomplicated (principal)
CPT/HCPCS: G0296

== ENCOUNTER 2025-05-15 10:24 | Outpatient (REF) | payer MEDICARE, SELFPAY ==
--- NOTE | ~2025-05-15 | CT_ITS ---
CLINICAL HISTORY: F17.210 - Nicotine dependence, cigarettes, uncomplicated CT lung cancer screening (LDCT) Comparison: None provided Technique: Axial CT images of the chest using low-dose technique. Referring provider counseled the patient on shared decision-making for LDCT screening. Additional counseling was provided on smoking cessation. Effective radiation dose total: DLP 66.6 mGycm, CTDIvol 1.9 mGy. Findings: Lung: Mild emphysema. Atelectatic change of the right upper lobe anteriorly. No suspicious pulmonary nodule. Coronary artery calcifications: Severe Limited upper abdomen: Unremarkable Other: None Impression: LungRADS 1: Negative exam. Continue annual screening with low dose Chest CT in 12 months. ##L1## Category 1: Normal; continue annual screening Category 2: Benign appearance or behavior, continue annual screening Category 3: Probably benign, [address] recommended Category 4A: Suspicious, [address] recommended; may consider PET/CT Category 4B: Suspicious, Additional diagnostics and/or tissue sampling recommended Category 4X: Suspicious, Additional diagnostics and/or tissue sampling recommended Category 0: Recalls (incomplete screen due to Incomplete coverage, Noise, Respiratory motion, Expiration, Obscured by acute abnormality) This document has been electronically signed by: Jair Booth MD on 05/15/2025 15:56:27
== END 2025-05-15 10:25 | disposition home or self-care (01) ==
LOC: HO.CT 10:24
PROVIDERS: PCP Internal Medicine; Visit Provider Physician Assistant Medical
DX: Z12.2 Encounter for screening for malignant neoplasm of respiratory organs (principal); F17.210 Nicotine dependence, cigarettes, uncomplicated
CPT/HCPCS: 71271; G0296

== ENCOUNTER → 2025-05-15 10:26 | Outpatient (BNV) | payer MEDICARE, SELFPAY | PROVIDERS: PCP Internal Medicine; Visit Provider Nuclear Medicine | DX: F17.210 Nicotine dependence, cigarettes, uncomplicated (principal) | CPT/HCPCS: 71271 ==

== ENCOUNTER 2025-07-02 13:10 | Outpatient (AMB) | payer MEDICARE, SELFPAY ==
--- NOTE | 2025-07-02 13:13 | MHC.OFFVIS ---
Intake Visit Reasons: elevated PSA Intake Note: Patient is present for ELEVATED PSA Urology Medication:NONE Antibiotic Allergy:NONE Blood Thinner:NONE Construction Coordinator Required: No Allergies bupropion (From Wellbutrin) Adverse Reaction (Severe, Verified 07/02/25 13:44) Seizure Medication List - Last Reconciled 07/02/25 by REN Hassan albuterol sulfate 90 mcg/actuation 2 puffs PO Q6H PRN azithromycin 250 mg PO 3XW 28 days budesonide-formoterol 160-4.5 mcg/actuation (Symbicort) 2 puffs inhalation BID 30 days ipratropium-albuterol 0.5 mg-3 mg(2.5 mg base)/3 mL 3 mL inhalation BID 30 days lorazepam 0.5 mg PO BID nebulizers As directed nicotine (polacrilex) (Nicorette) 2 mg buccal Q2H 30 days Oxygen Home Use As directed prednisone PO daily; Take 2 tabs daily x 5 days, then 1 tablet daily x 5 days 10 days sertraline 150 mg PO DAILY HPI Comments Details: Tu Moreau is a very pleasant 70-year-old male patient of . He has a past medical history of nicotine dependence, COPD, and bronchitis. He presents to the office today as a new patient for an elevated PSA. In discussion with the patient today he reports having followed up with his PCP and having blood work and recommendations were made for urology referral for further assessment evaluation. He does believe he has previously followed up with a urologist however this was many years ago. He is unsure as if he had a prostate biopsy in the past. In review of patient's chart it appears PSA 02/17 4.4. FRANCHESKA was offered however deferred. We did discussed potential causes of elevated PSA as well as further treatment options and risks and benefits of these treatment options. In office urinalysis results reviewed with the patient today. He denies any bothersome urinary issues. He denies any known family history of prostate cancer. He denies urinary urgency, urinary frequency, incontinence, nocturia, hematuria, dysuria, foul smelling urine, changes to urinary stream, flank pain, fever, and or chills. He is happy with his current voiding parameters. [facility] Medical History (Updated 07/02/25 @ 13:49 by REN Hassan) Nicotine dependence, cigarettes, uncomplicated COPD (chronic obstructive pulmonary disease) Bronchitis Mixed simple and mucopurulent chronic bronchitis Surgical History (Updated 05/15/25 @ 10:18 by Audra Vargas PA-C) History of hand surgery History of bronchoscopy Social History (Updated 05/15/25 @ 10:16 by Audra Vargas PA-C) Patient Tobacco Use Status: Current everyday Tobacco user Tobacco use type: Cigarette Years Smoked: (onset 11yo, 1ppd x 59yrs - 50+PYH) Review of Systems Const All systems reviewed & are unremarkable except as noted in HPI and below Physical Exam Const General: cooperative, healthy appearing, comfortable, no acute distress, well developed, alert and awake Orientation/consciousness: patient oriented x3 Limitations: no limitations HEENT Head: Yes normal to inspection, Yes normocephalic and Yes atraumatic Ears: hearing grossly normal bilaterally Eyes General: appearance normal, both eyes and all related structures Neck Neck: Yes normal visual inspection and Yes trachea midline Chest Chest palpation & inspection: normal inspection of the chest Resp Effort & Inspection: normal respiratory effort and able to speak in complete sentences Cardio Rate: regular rate GI Inspection: Yes normal to inspection General: Yes no CVA tenderness Back/Spine/Pelvis Back: no CVA tenderness Skin General skin exam: no rashes or lesions noted Neuro General: patient oriented x3 Extrem General: Yes normal to inspection Psych Appearance: grossly normal and well kempt Mental Status: mental status grossly normal Speech and movement: Normal speech and movement present and Clear speech present Affect: normal affect Attitude: cooperative Thought process: Normal thought process present Thought content: Normal thought content present Insight: Fair insight present (Psych) Judgement: Fair judgement present (Psych) Results AMB Urinalysis, Automated UA Leukoctes 0 Haja/uL Last Edit by JAY Galeana on 07/02/25 13:29 UA Nitrite Negative Last Edit by JAY Galeana on 07/02/25 13:29 UA Urobilinogen 0.2 mg/dL Last Edit by JAY Galeana on 07/02/25 13:29 UA Protein 0 mg/dL Last Edit by JAY Galeana on 07/02/25 13:29 UA pH 5.5 Last Edit by JAY Galeana on 07/02/25 13:29 UA Blood 0 Bandar/uL Last Edit by JAY Galeana on 07/02/25 13:29 UA Specific Gambell 1.010 Last Edit by JAY Galeana on 07/02/25 13:29 UA Ketone Negative Last Edit by JAY Galeana on 07/02/25 13:29 UA Bilirubin 0 mg/dL Last Edit by JAY Galeana on 07/02/25 13:29 UA Glucose 0 mg/dL Last Edit by JAY Galeana on 07/02/25 13:29 Results Reviewed Results Reviewed: Laboratory Last Values Urine pH (Auto) 5.5 07/02/25 13:28 Specific Gambell (Auto) 1.010 07/02/25 13:28 Urine Protein (Auto) 0 mg/dL 07/02/25 13:28 Glucose (UA)(Auto) 0 mg/dL 07/02/25 13:28 Urine Ketones (Auto) Negative 07/02/25 13:28 Urine Blood (Auto) 0 Bandar/uL 07/02/25 13:28 Urine Nitrite (Auto) Negative 07/02/25 13:28 Urine Bilirubin (Auto) 0 mg/dL 07/02/25 13:28 Urine Urobilinogen (Auto) 0.2 mg/dL 07/02/25 13:28 Leukocyte Esterase (Auto) 0 Haja/uL 07/02/25 13:28 Assessment & Plan Assessment & Plan (1) Elevated PSA: Code(s): R97.20 - Elevated prostate specific antigen [PSA] Category: Medical Plan In office urinalysis results reviewed with the patient today; as noted above. Most recent PSA results reviewed with the patient today; as noted above. We did discussed potential causes of elevated PSA as well as further treatment options and risks and benefits of these treatment options. FRANCHESKA was offered however deferred. Will obtain redraw of PSA with no sex the night before, no caffeine morning of, and no heavy lifting 1-2 days prior. Will obtain retroperitoneal ultrasound for further assessment evaluation. Patient currently denies any bothersome urinary issues or concerns. He reports be happy with current voiding parameters. Follow-up in 1-3 months with imaging and PSA; or sooner with any issues, concerns, and or questions. Orders: Orders AMB Urinalysis Automated Today Z13.9 - Encounter for screening, unspecified PSA,Total (Free>4and<10) Today R97.20 - Elevated prostate specific antigen [PSA] US retroperitoneal comp Today R97.20 - Elevated prostate specific antigen [PSA] Patient Instructions: The patient had an opportunity to ask questions regarding the treatment plan. All questions were answered. Physical exam, labs, and imaging were discussed and reviewed in detail. As well as risks, benefits, and discussion of treatment choices. No major barriers to understanding were identified. The patient expressed understanding and agreement with the above treatment plan. The patient was made aware they should contact our office by phone for worsening of their current condition, the appearance of new symptoms, or with any questions or concerns. Compliance is encouraged with any medications and follow up testing that is ordered. It is a privilege to be allowed the opportunity to participate in? your urological care.? Again, if you have any questions or concerns If you have any questions or concerns please do not hesitate to contact me. The office is [phone]. This note is constructed using voice recognition software. While every effort has been made to ensure accuracy supervisor audit clerks errors may have been included. Yours sincerely, REN Hassan Coding Level of Care Code New Pt Level 3 (71174) Diagnoses Elevated PSA R97.20
--- OUTSIDE RECORDS SUMMARY | 2025-07-02 13:13 | XMS_ITS | Patient Health Record ---
Author Organization [facility] Address [address], [place] [phone] Care Team Providers Care Fireperson Name Role Phone NO, PCP Primary Care Provider [phone] Yanet Soriano Unavailable [phone] Reason For Referral No Information Encounters Encounter Location Date Provider Diagnosis [facility] [address], [place] [phone] 08/13/2024 Yanet Soriano Plan Of Treatment No Information Insurance Providers Payer Name Payer Address Payer Phone Subscriber Number Group Number Insured Name Patient Relationship to Insured Coverage Start Date Coverage End Date Insurance Pending [address] [facility] [id number] Tu Ramon Self - patient is the insured 4
== END 2025-07-02 13:51 | disposition home or self-care (01) ==
LOC: HO.HUSH 13:10
PROVIDERS: PCP Internal Medicine; Visit Provider Nurse Practitioner Family
DX: R97.20 Elevated prostate specific antigen [PSA] (principal); Z13.9 Encounter for screening, unspecified
CPT/HCPCS: 99203

== ENCOUNTER → 2025-07-02 13:10 | Outpatient (BNVA) | payer MEDICARE, SELFPAY | PROVIDERS: PCP Internal Medicine; Visit Provider Nurse Practitioner Family | DX: R97.20 Elevated prostate specific antigen [PSA] (principal) | CPT/HCPCS: 81003; 99202 ==

== ENCOUNTER 2025-08-27 10:13 | Outpatient (AMB) | payer MEDICARE, SELFPAY ==
[2025-08-27 10:19] VITALS: BP 134/60; PULSE 86; O2SAT 96; BMI 30.7
--- NOTE | 2025-08-27 10:19 | MHC.OFFVIS ---
Vital Signs 08/27/25 10:19 Height 5 ft 8 in Weight 201 lb 11.567 oz BMI 30.7 BP 134/60 Blood Pressure Location Lt brachial Position Sitting Pulse 86 Pulse Source Pulse Oximeter Pulse Oximetry (%) 96 Oxygen Delivery Method Room Air Intake Visit Reasons: COPD Medical Staff Coordinator Required: No Accompanied by: Self / Same As Patient Allergies bupropion (From Wellbutrin) Adverse Reaction (Severe, Verified 08/27/25 10:22) Seizure HPI Comments Details: 70-year-old gentleman with known tobacco dependency and COPD. Still see continues to have productive cough with yellowish sputum. Moderate a mount. He also complains of dyspnea on exertion. He feels that he has been doing less because he does 1 get dyspneic. We talked about the importance of exercise. At this point the patient continues to smoke. He is motivated to quitting but is still having hard time doing so. Still having hard time with the smoking. He does have the Nicorette gum at home and is going to start using it. He has cut down significantly. He states that when he was younger he was smoking 4 packs a day now he is down to less than a pack. Explained to him the goals to should be to complete completely. He is getting dyspneic so therefore we did of 6 minutes walk test the patient does not qualify for oxygen supplementation. 03/21/2023 the patient is here for a pulmonary follow-up visit. Overall the patient is doing well. He denies any weight loss or night sweats or chest pain. I am concerned about his last CT scan demonstrating the masslike consolidation. He did undergo bronchoscopy without any evidence of any malignancy. He was also treated with antibiotics. However I do not see any post treatment imaging studies. I will request a chest x-ray. In addition to this I will look into of his next CT scan scheduled to the lung cancer screening program. If his chest x-ray is abnormal going to request a CT scan of the chest. He continues to smoke cigarettes. He has been trying to cut down. He has been struggling with that. He does continue to use his respiratory medications as prescribed. He also has oxygen at home but he has not been using it. I will go ahead and discontinue it at this time. If he becomes more symptomatic we can always retest to see if he needs it. 07/10/2023 the patient is here for pulmonary follow-up visit. He continues have difficulty with breathing. He recently status some prednisone. He is having worsening productive cough with yellowish phlegm. Sometimes the cough and the congestion wakes him up in the Sleep. Patient stands that is likely all from the smoking. The patient has had bad pneumonia in the past. Will go ahead and start on doxycycline. Did not respond to azithromycin. The patient also needs some prednisone as he is having wheezing. We did talk about his lung cancer screening CT scan. I do believe he is due for July of 2023. I will have our Lung Cancer program look into his neck state. Otherwise if his symptoms worsen we may have to move up the CT scan. The patient denies any significant weight loss or night sweats. Denies hemoptysis. Unfortunately continues smoking cigarettes. 09/04/2023 the patient is here for a pulmonary follow-up visit. The patient overall has been doing better. He still come he is to smoke cigarettes although he is cutting down. He is off the prednisone altogether. The patient continues in his respiratory therapy with good effect. He did have a CT scan of the chest to the lung cancer screening program in July 2023 demonstrating stable findings with unchanged pulmonary nodules. The patient will continue with current respiratory therapy will continue to cut down completely until he stops smoking. If the patient has any issues prior to the next visit he is to call for an earlier appointment otherwise follow-up in the springtime of 2023. 02/24/2025 the patient is here for a pulmonary follow-up visit. Overall he is doing fair. He is starting to develop worsening cough chest tightness and wheezing. He is waking up choking with phlegm. Moderate severity. Unfortunately continues to smoke cigarettes. He did try the Wellbutrin previously in the developed a significant seizure. Therefore Chantix would also be relatively contraindicated because the seizure history. The patient has not had a lung cancer screening since 2022. He lost insurance and he has been without any regular care. Will go ahead and refer him to the lung cancer screening program here. In the meantime he needs to be the plans with all his inhalers and respiratory medicines. I will do so. On exam he does have significant wheezing and rhonchi. Will go ahead and start him on azithromycin and also prednisone taper. The patient will continue working on smoking cessation. I will send a Nicorette gum. He did he tried and failed already the nicotine patch. Will follow-up in the fall. If he has any issues prior to that he will call for an earlier assessment. 08/27/2025 the patient is here for pulmonary follow-up visit. Overall the patient has been doing okay. He is still coughing and still has chest tightness. Continues uses Symbicort with good effect. He also has his albuterol in his nebulizer machine. Unfortunately continues smoking. He is smoking about a quarter of a pack or half a pack a day. Has a hard time cutting further. He is willing to try the Nicotrol nasal spray to see if this alleviates some of the cravings. He has tried most of the other medications for quitting in nicotine supplementation and he has not succeeded with that. The patient is participating in the lung cancer screening program in the last CAT scan was back in April 2025 with a rads 1. He does have evidence of chronic bronchitis. Will go ahead and keep him on a small dose of prednisone 10 mg daily and he can taper down to every other day. In the meantime he has to quit smoking in order to improve his respiratory capacity. [facility] Medical History (Updated 07/02/25 @ 13:49 by ALBARO Hassan-RENÉE) Nicotine dependence, cigarettes, uncomplicated COPD (chronic obstructive pulmonary disease) Bronchitis Mixed simple and mucopurulent chronic bronchitis Surgical History (Updated 05/15/25 @ 10:18 by Audra Vargas PA-C) History of hand surgery History of bronchoscopy Social History Patient Tobacco Use Status: Current everyday Tobacco user Tobacco use type: Cigarette Years Smoked: (onset 11yo, 1ppd x 59yrs - 50+PYH) Review of Systems Const Denies fever(s) Eyes Denies blurry vision and Denies itchy eyes ENT Denies nasal congestion and Denies post nasal drip Card Denies chest pain and Denies dyspnea Resp Reports change in phlegm color, Reports chest congestion, Reports cough, Denies hemoptysis, Denies excessive phlegm production, Denies dyspnea and Reports wheezing GI Denies abdominal pain and Denies heartburn Musc Denies myalgias, Denies arthralgias and Denies joint swelling Skin/Breast Denies rash Neuro Denies memory loss and Denies seizure-like activity Psych Denies abnormal sleep pattern, Denies anxiety and Denies memory loss Endo Denies heat intolerance Zak/Lymph Denies easy bruising Aller/Immun Denies itchy eyes, Denies seasonal rhinorrhea and Reports wheezing Physical Exam Vital Signs: Last Vital Signs Pulse 86 08/27/25 10:19 BP 134/60 08/27/25 10:19 Pulse Ox 96 08/27/25 10:19 Oxygen Delivery Method Room Air 08/27/25 10:19 BMI result Body Mass Index 30.7 Const General: alert Neck Neck: Yes normal visual inspection, Yes full ROM and Yes no lymphadenopathy Chest Chest palpation & inspection: normal inspection of the chest Resp Effort & Inspection: normal respiratory effort Auscultation: rhonchi, wheezes and diminished lung sounds Cardio Rate: regular rate Rhythm: regular rhythm Heart sounds: S1 normal heart sound present and S2 normal heart sound present GI Palpation (GI): Soft to palpation and nontender Auscultation: normal bowel sounds Skin General skin exam: rashes and/or lesions noted Assessment & Plan Assessment & Plan (1) Smoker: Code(s): F17.200 - Nicotine dependence, unspecified, uncomplicated Category: Social Hx (2) COPD (chronic obstructive pulmonary disease): Code(s): J44.9 - Chronic obstructive pulmonary disease, unspecified Category: Medical Qualifiers: COPD type: COPD with acute lower respiratory infection Qualified Code(s): J44.0 - Chronic obstructive pulmonary disease with (acute) lower respiratory infection (3) Mixed simple and mucopurulent chronic bronchitis: Code(s): J41.8 - Mixed simple and mucopurulent chronic bronchitis Category: Medical Plan continue Duoneb QID continue Symbicort stopped Azithromycin MWF start prednisone 10mg daily Nicotene nasal spray LDCT lung cancer screening program 04/2026 F/U 3-4 months Medications: New nicotine administer into each nostril 1 spray intranasal Q2H PRN 40 mL 6RF nicotine cravings 30 days prednisone 10 mg PO DAILY 30 tabs 3RF 30 days Coding Level of Care Code Est Pt Level 4 (36398) Complex EM visit Add On G2211 Diagnoses Smoker F17.200 Chronic obstructive pulmonary disease with acute lower respiratory infection J44.0 COPD type: COPD with acute lower respiratory infection Mixed simple and mucopurulent chronic bronchitis J41.8 Time Spent (min) 16
--- OUTSIDE RECORDS SUMMARY | 2025-08-27 11:38 | XMS_ITS | Clinical Summary ---
Author Organization [address] [facility] Address [address] [place] [place] [address] Phone Care Team Providers Care Driver'S License Examiner Name Role Phone TyraSimon diaz DO Primary Care Provider [phone] Encounters Date Type Department Care Team Description 08/13/2025 Lab Requisition [facility] - Main Lab [address] [facility] [email or web address] [address] Jayy Vazquez Urinary tract infection, site not specified; Hematuria, unspecified from Last 3 Months Medical History Medical History Date Comments Lung nodule 09/30/2017 DX:Lung nodule Social History Tobacco Use Types Packs/Day Years Used Date Smoking Tobacco: Every Day Cigarettes Smokeless Tobacco: Never Sex and Gender Information Value Date Recorded Sex Assigned at Not on file Legal Sex Male 11:12 AM EST Gender Identity Not on file Sexual Orientation Not on file Obstetrics History Plan of Treatment Health Maintenance Due Date Last Done Comments Colorectal Cancer Screening: Colonoscopy 1955 DTaP,Tdap,and Td Vaccines (1 - Tdap) 1974 Zoster Vaccines (1 of 2) 2005 RSV Immunization Adult Patients (1 - Risk 60-74 years 1-dose series) 2015 Abdominal Aortic Aneurysm (AAA) Screen 10/24/2022 Falls Risk Assessment 10/24/2022 Hepatitis C Screening 10/24/2022 Medicare Annual Wellness Visit 10/24/2022 Social Influencers of Health Screening 10/24/2022 Depression Screening 11/26/2024 COVID-19 Vaccine ( season) 2025 09/15/2022, 11/01/2021, 04/01/2021, Additional history exists Influenza Vaccine (#1) 2025 Hypertension/CHF/CAD Annual BMP Blood Test 05/11/2026 05/11/2025, 01/30/2025 Cholesterol Screening (Lipid Panel) 02/10/2030 02/10/2025 Pneumococcal Vaccine: 50+ Years Completed 09/11/2023 HIB Vaccines Aged Out No longer eligi ble based on patient's age to complete this topic HPV Vaccines Aged Out No longer eligi ble based on patient's age to complete this topic Hepatitis A Vaccines Aged Out No long er eligible based on patient's age to complete this topic Hepatitis B Vaccines Aged Out No long er eligible based on patient's age to complete this topic IPV Vaccines Aged Out No longer eligi ble based on patient's age to complete this topic MMR Vaccines Aged Out No longer eligi ble based on patient's age to complete this topic Meningococcal ACWY Vaccine Aged Out N o longer eligible based on patient's age to complete this topic Meningococcal B Vaccine Aged Out No l onger eligible based on patient's age to complete this topic RSV Immunization Patients Under 20 months Aged Out No longer eligible based on patient's age to complete this topic Varicella Vaccines Aged Out No longer eligible based on patient's age to complete this topic Procedures Procedure Name Priority Date/Time Associated Diagnosis Comments URINALYSIS WITH REFLEX MICROSCOPIC Routine 08/13/2025 12:00 AM EDT Urinary tract infection, site not specified Hematuria, unspecified URINALYSIS WITH REFLEX MICROSCOPIC Routine 08/13/2025 12:00 AM EDT Urinary tract infection, site not specified Hematuria, unspecified CULTURE URINE Routine 08/13/2025 12:00 AM EDT Urinary tract infection, site not specified Hematuria, unspecified BASIC METABOLIC PANEL Routine 05/11/2025 10:09 AM EDT DM (diabetes mellitus) ([facility]/HCC V24, [facility] V28) Elevated PSA Smoker COPD (chronic obstructive pulmonary disease) ([facility]/HCC V24, [facility] V28) Asthma LIPID PANEL WITH REFLEX TO DIRECT LDL Routine 02/10/2025 1:36 PM EDT Routine general medical examination at a health care facility from Last 3 Months or Most Recently Relevant to Health Maintenance Results * Urinalysis with reflex microscopic (08/13/2025 12:00 AM EDT) Specific [place] Urine 1.007 1.003 - 1.030 LAB URINALYSIS - AUTOMATED METHOD 08/13/2025 8:17 PM [facility] pH, Urine 5.5 5.0 - 8.0 pH LAB URINALYSIS - AUTOMATED METHOD 08/13/2025 8:17 PM [facility] Leukocytes, Urine Negative Negative LAB URINALYSIS - AUTOMATED METHOD 08/13/2025 8:17 PM [facility] Nitrite, Urine Negative Negative LAB URINALYSIS - AUTOMATED METHOD 08/13/2025 8:17 PM [facility] Protein, Urine Negative <=Trace mg/dL LAB URINALYSIS - AUTOMATED METHOD 08/13/2025 8:17 PM [facility] Glucose, Urine Negative Negative mg/dL LAB URINALYSIS - AUTOMATED METHOD 08/13/2025 8:17 PM [facility] Ketones, Urine Negative Negative mg/dL LAB URINALYSIS - AUTOMATED METHOD 08/13/2025 8:17 PM [facility] Urobilinogen, Urine 0.2 0.2 - 1.0 mg/dL LAB URINALYSIS - AUTOMATED METHOD 08/13/2025 8:17 PM [facility] Bilirubin, Urine Negative Negative LAB URINALYSIS - AUTOMATED METHOD 08/13/2025 8:17 PM [facility] Blood, Urine Negative Negative LAB URINALYSIS - AUTOMATED METHOD 08/13/2025 8:17 PM [facility] Urine Urine specimen obtained by clean catch procedure / Unknown 08/13/2025 08/13/2025 7:44 PM EDT us Jayy Vazquez LAB URINE ORDERABLES Final Resul t [facility] [address] [place] [address], [place] [phone] * Culture urine (08/13/2025 12:00 AM EDT) [facility] Culture, Urine No growth 08/14/2025 2:07 PM EDT [facility] Urine Urine specimen obtained by clean catch procedure / Unknown 08/13/2025 08/13/2025 7:44 PM EDT Jayy Vazquez LAB MICROBIOLOGY - GENERAL ORDER MISAEL Final Result [facility] [address] [place] [address], [place] [phone] * (ABNORMAL) Basic metabolic panel (05/11/2025 10:09 AM EDT) [facility] Sodium 138 133 - 145 mmol/L LAB CHEMISTRY METHOD 05/11/2025 2:25 PM [facility] Potassium 4.6 3.5 - 5.5 mmol/L LAB CHEMISTRY METHOD 05/11/2025 2:25 PM [facility] Chloride 106 96 - 110 mmol/L LAB CHEMISTRY METHOD 05/11/2025 2:25 PM [facility] CO2 27 21 - 32 mmol/L LAB CHEMISTRY METHOD 05/11/2025 2:25 PM [facility] Anion Gap 5 3 - 11 LAB CHEMISTRY METHOD 05/11/2025 2:25 PM [facility] Glucose 156(H) 70 - 100 mg/dL LAB CHEMISTRY METHOD 05/11/2025 2:25 PM [facility] BUN 9 5 - 25 mg/dL LAB CHEMISTRY METHOD 05/11/2025 2:25 PM [facility] Creatinine 0.80 0.70 - 1.30 mg/dL LAB CHEMISTRY METHOD 05/11/2025 2:25 PM [facility] eGFR 95 >=60 mL/min/1. 73m2 LAB CHEMISTRY METHOD 05/11/2025 2:25 PM EDT [facility] Comment:Calculation based on the Chronic Kidney Disease Epidemiology Collaboration (CKD-EPI) equation refit without adjustment for race. BUN/Creatinine Ratio 11.3 LAB CHEMISTRY METHOD 05/11/2025 2:25 PM EDT [facility] Calcium 8.9 8.5 - 10.5 mg/dL LAB CHEMISTRY METHOD 05/11/2025 2:25 PM EDT [facility] Blood Venous blood specimen / Unknown Venipuncture / Unknown 05/11/2025 10:09 AM EDT 05/11/2025 10:09 AM EDT Jayy Vazquez LAB BLOOD ORDERABLES Final Resul t [facility] [address] [place] [address], * Lipid panel with reflex to direct LDL (02/10/2025 1:36 PM EDT) Cholesterol 163 0 - 200 mg/dL LAB CHEMISTRY METHOD 02/10/2025 3:51 PM EDT [facility] Triglycerides 74 0 - 150 mg/dL LAB CHEMISTRY METHOD 02/10/2025 3:51 PM EDT [facility] HDL 79 >=40 mg/dL LAB CHEMISTRY METHOD 02/10/2025 3:51 PM EDT [facility] LDL Calculated 69 0 - 100 mg/dL LAB CHEMISTRY METHOD 02/10/2025 3:51 PM EDT [facility] VLDL Cholesterol Stephen 14.8 mg/dL LAB CHEMISTRY METHOD 02/10/2025 3:51 PM EDT [facility] Non HDL Chol. (LDL+VLDL) 84 <145 mg/dL LAB CHEMISTRY METHOD 02/10/2025 3:51 PM EDT [facility] Chol/HDL Ratio 2.1 0.0 - 4.4 LAB CHEMISTRY METHOD 02/10/2025 3:51 PM EDT [facility] Blood Venous blood specimen / Unknown Venipuncture / Unknown 02/10/2025 1:36 PM EDT 02/10/2025 1:36 PM EDT us Jayy George LAB BLOOD ORDERABLES Final Resul t [facility] [address] [place] [address], [place] [phone] from Last 3 Months or Most Recently Relevant to Health Maintenance Insurance MEDICARE CARE [employer] [facility] [employer] MEDICARE Care Teams Driver'S License Examiner Relationship Specialty Start Date End Date Simon Mcwilliams DO [address] [place] [address] [place] [address] PCP - General Internal Medicine 10/16/17
--- OUTSIDE RECORDS SUMMARY | 2025-08-27 11:38 | XMS_ITS | Encounter Summary ---
Author Organization [facility] Address [address] [place] [address] Care Team Providers Care Work And Family Life Consultant Name Role Phone Simon Mcwilliams MD Primary Care Provider Charity Mujica MD Unavailable Reason for Visit * Reason Comments E-prescribe Rx Request Encounter Details Date Type Department Care Team Description 08/02/2018 Refill Pulmonology - [address] [place] [address] Andrew Saha MD E-prescribe Rx Request Social History Tobacco Use Types Packs/Day Years Used Date Smoking Tobacco: Every Day Cigarettes 0.5 50 Sex Assigned at Date Recorded Not on file documented as of this encounter Miscellaneous Notes * Telephone Encounter - Kimamanda Lucero - 08/02/2018 9:09 AM EDT Patient would like script to be: E-PRESCRIBED/FAXED TO PHARMACY WHEN WAS THE PATIENT'S LAST APPOINTMENT WITH THE PRESCRIBING PROVIDER? 01/17/18 Does patient have an upcoming appointment? Yes (THE MEDICATION REQUESTED IS ON THE MED LIST ABOVE) All of the medications requested were on the CURRENT MEDS list Did you check the Pharmacy information above?: YES Patient wants: 90 -day supply Is this a mail order prescription request ? NO Patients current insurance carrier is: Payor: [employer] / Plan: HMO $20 [place] / Product Type: HMO [id number] documented in this encounter Plan of Treatment Not on file documented as of this encounter Visit Diagnoses Not on filedocumented in this encounter Care Teams Work And Family Life Consultant Relationship Specialty Start Date End Date Simon Mcwilliams MD PCP - General Internal Medicine 10/16/17 Charity Arvizu MD Specialist Lung Cancer Tester Operator Helper 08/31/22 documented as of this encounter
--- OUTSIDE RECORDS SUMMARY | 2025-08-27 11:38 | XMS_ITS | Encounter Summary ---
Author Organization [facility] Address [address] [place] [address] Care Team Providers Care Product Safety Technician Name Role Phone Simon Mcwilliams MD Primary Care Provider Charity Mujica MD Unavailable Encounter Details Date Type Department Care Team Description 01/18/2018 Release of Information Medical Records [address] [place] [id number] Abstract, Provider Social History Tobacco Use Types Packs/Day Years Used Date Smoking Tobacco: Every Day Cigarettes 0.5 50 Sex Assigned at Date Recorded Not on file documented as of this encounter Plan of Treatment Not on file documented as of this encounter Visit Diagnoses Not on filedocumented in this encounter Care Teams Product Safety Technician Relationship Specialty Start Date End Date Simon Mcwilliams MD PCP - General Internal Medicine 10/16/17 Chraity Arvizu MD Specialist Lung Cancer Chemical Tank Worker 08/31/22 documented as of this encounter
--- OUTSIDE RECORDS SUMMARY | 2025-08-27 11:38 | XMS_ITS | Encounter Summary ---
Author Organization [facility] Address [address] [place] [address] Care Team Providers Care Ornamental Metalwork Designer Name Role Phone Simon Mcwilliams MD Primary Care Provider Charity Mujica MD Unavailable Reason for Visit * Reason Comments E-prescribe Rx Request Encounter Details Date Type Department Care Team Description 08/14/2018 Refill Pulmonology - [address] [place] [address] Andrew Saha MD E-prescribe Rx Request Social History Tobacco Use Types Packs/Day Years Used Date Smoking Tobacco: Every Day Cigarettes 0.5 50 Sex Assigned at Date Recorded Not on file documented as of this encounter Miscellaneous Notes * Telephone Encounter - Lupillo Robles - 08/14/2018 9:54 AM EDT Patient would like script to be: E-PRESCRIBED/FAXED TO PHARMACY WHEN WAS THE PATIENT'S LAST APPOINTMENT WITH THE PRESCRIBING PROVIDER? 01/17/18 Does patient have an upcoming appointment? Yes 08/20/18 (THE MEDICATION REQUESTED IS ON THE MED LIST ABOVE) All of the medications requested were on the CURRENT MEDS list Did you check the Pharmacy information above?: YES Patient wants: 90 -day supply Is this a mail order prescription request ? NO Patients current insurance carrier is: Payor: [employer] / Plan: HMO $20 [place] 1 / Product Type: HMO [id number] documented in this encounter Plan of Treatment Not on file documented as of this encounter Visit Diagnoses Not on filedocumented in this encounter Care Teams Ornamental Metalwork Designer Relationship Specialty Start Date End Date Simon Mcwilliams MD PCP - General Internal Medicine 10/16/17 Charity Arvizu MD Specialist Lung Cancer Relays Draftsperson 08/31/22 documented as of this encounter
--- OUTSIDE RECORDS SUMMARY | 2025-08-27 11:39 | XMS_ITS | Encounter Summary ---
Author Organization [facility] Address [address] [place] [address] Care Team Providers Care Plant Quality Manager Name Role Phone Simon Mcwilliams MD Primary Care Provider Charity Mujica MD Unavailable Reason for Visit * Reason Comments E-prescribe Rx Request Encounter Details Date Type Department Care Team Description 10/20/2018 Refill Pulmonology - [address] [place] [address] Andrew Saha MD E-prescribe Rx Request Social History Tobacco Use Types Packs/Day Years Used Date Smoking Tobacco: Every Day Cigarettes 0.5 50 Sex Assigned at Date Recorded Not on file documented as of this encounter Miscellaneous Notes * Telephone Encounter - Mignon AngieDirkMathew - 10/21/2018 7:39 AM EST Patient would like script to be: E-PRESCRIBED/FAXED TO PHARMACY WHEN WAS THE PATIENT'S LAST APPOINTMENT WITH THE PRESCRIBING PROVIDER? 08/20/2018 Does patient have an upcoming appointment? Yes 11/21/2018 (THE MEDICATION REQUESTED IS ON THE MED LIST ABOVE) All of the medications requested were on the CURRENT MEDS list Did you check the Pharmacy information above?: YES Patient wants: 30 -day supply Is this a mail order prescription request ? NO Patients current insurance carrier is: Payor: Hemarina SUMTER / Plan: HMO $20 [place] 1 / Product Type: HMO [id number] documented in this encounter Plan of Treatment Not on file documented as of this encounter Visit Diagnoses Diagnosis Mucopurulent chronic bronchitis (HCC) Mucopurulent chronic bronchitis documented in this encounter Care Teams Plant Quality Manager Relationship Specialty Start Date End Date Simon Mcwilliams MD PCP - General Internal Medicine 10/16/17 Charity Arviuz MD Specialist Lung Cancer Currency Exchange Specialist 08/31/22 documented as of this encounter
--- OUTSIDE RECORDS SUMMARY | 2025-08-27 11:39 | XMS_ITS | Clinical Summary ---
Author Organization [facility] Address [address] [facility] [place] [address] Care Team Providers Care Palm Gatherer Name Role Phone Simon Mcwilliams MD Primary Care Provider Charity Mujica MD Unavailable Allergies Active Allergy Reactions Severity Noted Date Comments Bupropion 01/05/2017 Roflumilast 07/20/2017 Medications Medication Sig Dispensed Refills Start Date End Date Status predniSONE (DELTASONE) 10 MG tabletIndications:Mu copurulent chronic bronchitis (HCC) TAKE 2 TABS BY MOUTH DAILY FOR 30 DAYS. 60 Tab 1 10/21/2018 Active nicotine (NICOTROL) 10 MG inhaler Inhale 3 Puffs into the lungs every 3 hours as needed for Smoking cessation for up to 30 days. 168 Each 0 12/27/2018 Active ALBUTEROL SULFATE 108 (90 BASE) MCG/ACT Aero Soln Inhale 2 Puffs into the lungs every 4 hours as needed for Cough or Wheezing for up to 30 days. 1 Inhaler 11 06/26/2019 Active tiotropium (SPIRIVA HANDIHALER) 18 MCG inhalation capsule Inhale 1 Cap into the lungs daily for 30 days. Inhale the contents of one capsule through the Spiriva device every AM 30 Cap 11 06/26/2019 Active Active Problems Problem Noted Date Asthma-COPD overlap syndrome 01/17/2018 Tobacco use 01/01/2018 Lung nodule 09/30/2017 Chronic obstructive pulmonary disease Gastroesophageal reflux disease 07/20/20 17 Anxiety disorder 01/31/2017 Asthma 01/31/2017 Hypertension 01/31/2017 Social History Tobacco Use Types Packs/Day Years Used Date Smoking Tobacco: Every Day Cigarettes 0.5 50 Smokeless Tobacco: Never Sex Assigned at Date Recorded Not on file Last Filed Vital Signs Vital Sign Reading Time Taken Comments Blood Pressure 158/90 06/26/2019 9:19 AM EDT Pulse 77 06/26/2019 9:19 AM EDT Temperature - - Respiratory Rate 18 06/26/2019 9:19 AM EDT Oxygen Saturation 97% 06/26/2019 9:19 AM EDT Inhaled Oxygen Concentration - - Weight 93.8 kg (206 lb 12.8 oz) 06/26/2019 9:19 AM EDT Height 172.7 cm (5' 8 ) 06/26/2019 9:19 AM EDT Body Mass Index 31.44 06/26/2019 9:19 AM EDT Plan of Treatment Health Maintenance Due Date Last Done Comments HEPATITIS C SCREENING 1973 DTAP/TDAP/TD (1 - Tdap) 1974 CHOLESTEROL SCREENING 1975 COLON CANCER SCREENING 2005 SHINGLES VACCINE (1 of 2) 2005 ABDOMINAL AORTIC ANEURYSM (A AA) SCREENING 2020 PNEUMOCOCCAL VACCINE (1 - PCV) 2020 TOBACCO CHECK/ADVISE 06/26/2021 06/26/2019, 06/19/2019, 03/18/2019, Additional history exists BMI CHECK/ADVISE 11/26/2024 06/26/2019, 11/2018, 08/20/2018, Additional history exists Covid-19 Vaccine (3 - 2022-2 4 season) 2025 04/01/2021, 03/11/2021 INFLUENZA (#1) 2025 Care Teams Palm Gatherer Relationship Specialty Start Date End Date Simon Mcwilliams MD PCP - General Internal Medicine 10/16/17 Charity Arvizu MD Specialist Lung Cancer Data Entry Clerk 08/31/22
--- OUTSIDE RECORDS SUMMARY | 2025-08-27 11:39 | XMS_ITS | Encounter Summary ---
Author Organization [facility] Address [address] [place] [address] Care Team Providers Care Telephone Lineman Name Role Phone TyraSimon diaz Primary Care Provider [phone] Encounter Details Date Type Department Care Team (Late st Contact Info) Description 08/13/2025 Lab Requisition [facility] - Main Lab [address] [facility] [place] [address] Jayy Vazquez [address] [place] [address] [place] [address] Urinary tract infection, site not specified; Hematuria, unspecified Social History Tobacco Use Types Packs/Day Years Used Date Smoking Tobacco: Every Day Cigarettes Smokeless Tobacco: Never Sex and Gender Information Value Date Recorded Sex Assigned at Not on file Legal Sex Male 11:12 AM EST Gender Identity Not on file Sexual Orientation Not on file documented as of this encounter Plan of Treatment Not on file documented as of this encounter Procedures Procedure Name Priority Date/Time Associated Diagnosis Comments URINALYSIS WITH REFLEX MICROSCOPIC Routine 08/13/2025 12:00 AM EDT Urinary tract infection, site not specified Hematuria, unspecified URINALYSIS WITH REFLEX MICROSCOPIC Routine 08/13/2025 12:00 AM EDT Urinary tract infection, site not specified Hematuria, unspecified CULTURE URINE Routine 08/13/2025 12:00 AM EDT Urinary tract infection, site not specified Hematuria, unspecified documented in this encounter Results * Urinalysis with reflex microscopic (08/13/2025 12:00 AM EDT) Specific [place] Urine 1.007 1.003 - 1.030 LAB URINALYSIS - AUTOMATED METHOD 08/13/2025 8:17 PM EDT [facility] pH, Urine 5.5 5.0 - 8.0 pH LAB URINALYSIS - AUTOMATED METHOD 08/13/2025 8:17 PM [facility] Leukocytes, Urine Negative Negative LAB URINALYSIS - AUTOMATED METHOD 08/13/2025 8:17 PM [facility] Nitrite, Urine Negative Negative LAB URINALYSIS - AUTOMATED METHOD 08/13/2025 8:17 PM T [facility] Protein, Urine Negative <=Trace mg/dL LAB URINALYSIS - AUTOMATED METHOD 08/13/2025 8:17 PM [facility] Glucose, Urine Negative Negative mg/dL LAB URINALYSIS - AUTOMATED METHOD 08/13/2025 8:17 PM [facility] Ketones, Urine Negative Negative mg/dL LAB URINALYSIS - AUTOMATED METHOD 08/13/2025 8:17 PM [facility] Urobilinogen, Urine 0.2 0.2 - 1.0 mg/dL LAB URINALYSIS - AUTOMATED METHOD 08/13/2025 8:17 PM [facility] Bilirubin, Urine Negative Negative LAB URINALYSIS - AUTOMATED METHOD 08/13/2025 8:17 PM [facility] Blood, Urine Negative Negative LAB URINALYSIS - AUTOMATED METHOD 08/13/2025 8:17 PM [facility] Urine Urine specimen obtained by clean catch procedure / Unknown 08/13/2025 08/13/2025 7:44 PM EDT us Jayy Vazquez LAB URINE ORDERABLES Final Resul t [facility] [address] [place] [address], * Culture urine (08/13/2025 12:00 AM EDT) Culture, Urine No growth 08/14/2025 2:07 PM EDT [facility] Urine Urine specimen obtained by clean catch procedure / Unknown 08/13/2025 08/13/2025 7:44 PM EDT us Jayy Vazquez LAB MICROBIOLOGY - GENERAL ORDER MISAEL Final Result [facility] [address] [place] [address], documented in this encounter Visit Diagnoses Diagnosis Urinary tract infection, site not specified Hematuria, unspecified documented in this encounter Care Teams Telephone Lineman Relationship Specialty Start Date End Date Simon Mcwilliams DO [address] [place] [id number] PCP - General Internal Medicine 10/16/17 documented as of this encounter
--- OUTSIDE RECORDS SUMMARY | 2025-08-27 11:39 | XMS_ITS | Encounter Summary ---
Author Organization [facility] Address [address] [place] [address] Care Team Providers Care Shelter Case Manager Name Role Phone Simon Mcwilliams MD Primary Care Provider Charity Mujica MD Unavailable Encounter Details Date Type Department Care Team Description 10/30/2017 Transfer Records Medical Records [address] [place] [address] Abstract, Provider Social History Tobacco Use Types Packs/Day Years Used Date Smoking Tobacco: Every Day Cigarettes 0.5 50 Sex Assigned at Date Recorded Not on file documented as of this encounter Plan of Treatment Not on file documented as of this encounter Visit Diagnoses Not on filedocumented in this encounter Care Teams Shelter Case Manager Relationship Specialty Start Date End Date Simon Mcwilliams MD PCP - General Internal Medicine 10/16/17 Charity Arvizu MD Specialist Lung Cancer Pattern Technician 08/31/22 documented as of this encounter
--- OUTSIDE RECORDS SUMMARY | 2025-08-27 11:39 | XMS_ITS | Patient Health Record ---
Author Organization [facility] Address [address] [place] [address] Care Team Providers Care Icu Specialist Name Role Phone NO, PCP Primary Care Provider Yanet Soriano Unavailable [phone] Reason For Referral No Information Plan Of Treatment No Information Insurance Providers Payer Name Payer Address Payer Phone Subscriber Number Group Number Insured Name Patient Relationship to Insured Coverage Start Date Coverage End Date Insurance Pending [address] [place] [id number] Tu Ramon Self - patient is the insured 4
--- OUTSIDE RECORDS SUMMARY | 2025-08-27 11:39 | XMS_ITS | Encounter Summary ---
Author Organization [facility] Address [address] [place] [address] Care Team Providers Care Automatic Lathe Operator Name Role Phone Simon Mcwilliams MD Primary Care Provider Charity Mujica MD Unavailable Reason for Visit * Reason Onset Date Comments Promotions Firm Accounts Manager Feedback 03/07/2019 Lung Cancer Scre ening Encounter Details Date Type Department Care Team Description 03/07/2019 Telephone Pulmonology - [address] [place] [address] Andrew Saha MD Promotions Firm Accounts Manager Feedback (Lung Cancer Screening) Social History Tobacco Use Types Packs/Day Years Used Date Smoking Tobacco: Every Day Cigarettes 0.5 50 Smokeless Tobacco: Never Sex Assigned at Date Recorded Not on file documented as of this encounter Miscellaneous Notes * Telephone Encounter - Cee Perez - 03/07/2019 2:52 PM EDT FYI: Per [facility] Lung Cancer Screening Program: We have been unable to reach Mr. Ronquillo to reschedule for his enrollment in the program which he cancelled for 01/28/19. We've attempted to reschedule via phone calls and letters sent on 01/31 and 02/18/19. Please re-refer this patient if they are interested in enrollment in the Lung Screening Program. Please contact us with any questions. [phone] documented in this encounter Plan of Treatment Not on file documented as of this encounter Visit Diagnoses Not on filedocumented in this encounter Care Teams Automatic Lathe Operator Relationship Specialty Start Date End Date Simon Mcwilliams MD PCP - General Internal Medicine 10/16/17 Charity Arvizu MD Specialist Lung Cancer Wire Cutter 08/31/22 documented as of this encounter
--- OUTSIDE RECORDS SUMMARY | 2025-08-27 11:39 | XMS_ITS | Encounter Summary ---
Author Organization [facility] Address [address] [place] [address] Care Team Providers Care Appeals Writer Name Role Phone Simon Mcwilliams MD Primary Care Provider Charity Mujica MD Unavailable Encounter Details Date Type Department Care Team Description 05/04/2020 Referral Rn Report Medical Records [address] [place], [place] [id number] [place] [address] Social History Tobacco Use Types Packs/Day Years Used Date Smoking Tobacco: Every Day Cigarettes 0.5 50 Smokeless Tobacco: Never Sex Assigned at Date Recorded Not on file documented as of this encounter Plan of Treatment Not on file documented as of this encounter Visit Diagnoses Not on filedocumented in this encounter Care Teams Appeals Writer Relationship Specialty Start Date End Date Simon Mcwilliams MD PCP - General Internal Medicine 10/16/17 Charity Arvizu MD Specialist Lung Cancer Interpreter And Translator 08/31/22 documented as of this encounter
--- OUTSIDE RECORDS SUMMARY | 2025-08-27 11:39 | XMS_ITS | Encounter Summary ---
Author Organization [facility] Address [address] [place] [address] Care Team Providers Care Beef Skinner Name Role Phone Simon Mcwilliams MD Primary Care Provider Charity Mujica MD Unavailable Reason for Visit * Reason Comments E-prescribe Rx Request Encounter Details Date Type Department Care Team Description 06/19/2019 Refill Pulmonology - [address] [place] [address] Andrew Saha MD E-prescribe Rx Request Social History Tobacco Use Types Packs/Day Years Used Date Smoking Tobacco: Every Day Cigarettes 0.5 50 Smokeless Tobacco: Never Sex Assigned at Date Recorded Not on file documented as of this encounter Miscellaneous Notes * Telephone Encounter - Bianca Suh - 06/19/2019 3:26 PM EDT Patient would like script to be: E-PRESCRIBED/FAXED TO PHARMACY WHEN WAS THE PATIENT'S LAST APPOINTMENT IN ADULT MEDICINE? 12/27/18 WHEN WAS THE LAST TIME THE PATIENT SAW THEIR PCP? Same as above Does patient have an upcoming appointment? Yes 06/26/19 (THE MEDICATION REQUESTED IS ON THE MED LIST ABOVE) All of the medications requested were on the CURRENT MEDS list Did you check the Pharmacy information above?: YES Patient wants: 90 -day supply Is this a mail order prescription request ? YES If the refill is from a FAXED refill request what is the RX # listed on the fax? N/A Patients current insurance carrier is: Payor: [employer] / Plan: [employer] $20 SURPRISE 1 / Product Type: HMO [id number] documented in this encounter Plan of Treatment Not on file documented as of this encounter Visit Diagnoses Not on filedocumented in this encounter Care Teams Beef Skinner Relationship Specialty Start Date End Date Simon Mcwilliams MD PCP - General Internal Medicine 10/16/17 Charity Arvizu MD Specialist Lung Cancer Flask Fitter 08/31/22 documented as of this encounter
--- OUTSIDE RECORDS SUMMARY | 2025-08-27 11:39 | XMS_ITS | Encounter Summary ---
Author Organization [facility] Address [address] [place] [address] Care Team Providers Care Social Service Worker Name Role Phone Simon Mcwilliams MD Primary Care Provider Charity Mujica MD Unavailable Encounter Details Date Type Department Care Team Description 08/23/2023 Manager Balance Report Medical Records [address] [place], [place] [id number] [place] [address] Social History Tobacco Use Types Packs/Day Years Used Date Smoking Tobacco: Every Day Cigarettes 0.5 50 Smokeless Tobacco: Never Sex Assigned at Date Recorded Not on file documented as of this encounter Plan of Treatment Not on file documented as of this encounter Visit Diagnoses Not on filedocumented in this encounter Care Teams Social Service Worker Relationship Specialty Start Date End Date Simon Mcwilliams MD PCP - General Internal Medicine 10/16/17 Charity Arvizu MD Specialist Lung Cancer Wardrobe Consultant 08/31/22 documented as of this encounter
== END 2025-08-27 10:40 | disposition home or self-care (01) ==
LOC: HO.HPS 10:13
PROVIDERS: PCP Internal Medicine; Visit Provider Hospitalist
DX: F17.200 Nicotine dependence, unspecified, uncomplicated (principal); J44.0 Chronic obstructive pulmonary disease with (acute) lower respiratory infection; J41.8 Mixed simple and mucopurulent chronic bronchitis
CPT/HCPCS: 99214; G2211

== ENCOUNTER → 2025-08-27 10:13 | Outpatient (BNVA) | payer MEDICARE, SELFPAY | PROVIDERS: PCP Internal Medicine; Visit Provider Hospitalist | DX: J44.0 Chronic obstructive pulmonary disease with (acute) lower respiratory infection (principal); J41.8 Mixed simple and mucopurulent chronic bronchitis; F17.200 Nicotine dependence, unspecified, uncomplicated | CPT/HCPCS: 99212 ==

== ENCOUNTER 2025-09-14 10:23 | Outpatient (REF) | payer MEDICARE, SELFPAY ==
--- NOTE | ~2025-09-14 | US_ITS ---
CLINICAL HISTORY: R97.20 - Elevated prostate specific antigen [PSA] US Renal Comparison: None provided Findings: Right kidney normal size and echotexture, 12 cm length. 1 cm renal cyst. Left kidney normal size and echotexture, 12.1 cm length. There are renal cysts measuring up to 3 cm in size. No collecting system dilatation of either kidney. Normal color Doppler. Urinary bladder is unremarkable. Prevoid volume 231 mL. Postvoid volume 46 mL. Bilateral ureteral jets are visualized. Prostate gland 5 x 4.3 x 5.2 cm in size with volume of 59 mL. There is a 1.3 cm cystic area of the prostate gland. IMPRESSION: No hydronephrosis. Prostatomegaly. This document has been electronically signed by: Jair Booth MD on 09/15/2025 13:40:33
== END 2025-09-14 10:24 | disposition home or self-care (01) ==
LOC: HO.US 10:23
PROVIDERS: PCP Internal Medicine; Visit Provider Nurse Practitioner Family
DX: R97.20 Elevated prostate specific antigen [PSA] (principal)
CPT/HCPCS: 76770

== ENCOUNTER → 2025-09-14 10:23 | Outpatient (BNV) | payer MEDICARE, SELFPAY | PROVIDERS: PCP Internal Medicine; Visit Provider Nuclear Medicine | DX: N40.0 Benign prostatic hyperplasia without lower urinary tract symptoms (principal) | CPT/HCPCS: 76770 ==

== ENCOUNTER 2025-09-15 11:28 | Outpatient (REF) | payer MEDICARE, SELFPAY ==
[2025-09-15 14:15] LABS: PSA,Total (Free>4and<10) 2.12 ng/mL (0.00-4.00)
== END 2025-09-15 11:29 | disposition home or self-care (01) ==
LOC: HO.LAB 11:28
PROVIDERS: PCP Internal Medicine; Visit Provider Nurse Practitioner Family
DX: R97.20 Elevated prostate specific antigen [PSA] (principal); Z12.5 Encounter for screening for malignant neoplasm of prostate
CPT/HCPCS: 36415; 84153

== ENCOUNTER 2025-09-30 14:58 | Outpatient (AMB) | payer MEDICARE, SELFPAY ==
--- NOTE | 2025-09-30 15:06 | A.OFFVIS_ITS ---
Intake Visit Reasons: 3M/PSA and US Intake Note: Patient is present for 3M/PSA/US Urology Medication:NONE Antibiotic Allergy:NONE Blood Thinner:NONE Section Plotter Operator Required: No Allergies bupropion (From Wellbutrin) Adverse Reaction (Severe, Verified 09/30/25 15:40) Seizure Medication List - Last Reconciled 09/30/25 by Negar Bautista SCOUT EXECUTIVE- albuterol sulfate 90 mcg/actuation 2 puffs PO Q6H PRN budesonide-formoterol 160-4.5 mcg/actuation (Symbicort) 2 puffs inhalation BID 30 days ipratropium-albuterol 0.5 mg-3 mg(2.5 mg base)/3 mL 3 mL inhalation BID 30 days lorazepam 0.5 mg PO BID nebulizers As directed nicotine 1 spray intranasal Q2H PRN 30 days Oxygen Home Use As directed prednisone 10 mg PO DAILY 30 days sertraline 150 mg PO DAILY HPI Comments Details: Tu Moreau is a very pleasant 70-year-old male patient of . He has a past medical history of nicotine dependence, COPD, and bronchitis. He presents to the office today for follow-up. Of note, patient was seen approximately 3 months ago as a new patient for an elevated PSA at which time a retroperitoneal ultrasound and redraw of PSA were ordered. These results were reviewed and communicated with the patient today. 09/19 bilateral kidneys are normal in echotexture and size. No collecting system dilatation of either kidney. Normal color Doppler bilaterally. The urinary bladder is unremarkable. Postvoid bladder volume 50 mL. Prostate gland is enlarged measuring approximately 60 mL. Bilateral renal cysts per radiology report. PSAs are as follows: PSA: 02/17 4.4, 09/19 2.1 We did discussed decrease in PSA however enlarged prostate noted on imaging. We did again review potential causes of previous elevated PSA. In office urinalysis results reviewed with the patient today. He denies any bothersome urinary issues. He denies any known family history of prostate cancer. He denies urinary urgency, urinary frequency, incontinence, nocturia, hematuria, dysuria, foul smelling urine, changes to urinary stream, flank pain, fever, and or chills. He is happy with his current voiding parameters. We did discuss init iation of finasteride given enlarged prostate noted on imaging versus continuation of surveillance monitoring. All questions were answered. He otherwise offers no other issues or concerns at this time. [facility] Medical History (Updated 09/30/25 @ 20:53 by REN Hassan) Nicotine dependence, cigarettes, uncomplicated COPD (chronic obstructive pulmonary disease) Bronchitis Mixed simple and mucopurulent chronic bronchitis Surgical History (Updated 05/15/25 @ 10:18 by Audra Vargas PA-C) History of hand surgery History of bronchoscopy Social History Patient Tobacco Use Status: Current everyday Tobacco user Tobacco use type: Cigarette Years Smoked: (onset 11yo, 1ppd x 59yrs - 50+PYH) Review of Systems Const All systems reviewed & are unremarkable except as noted in HPI and below Physical Exam Const General: cooperative, healthy appearing, comfortable, no acute distress, well developed, alert and awake Orientation/consciousness: patient oriented x3 Limitations: no limitations HEENT Head: Yes normal to inspection, Yes normocephalic and Yes atraumatic Ears: hearing grossly normal bilaterally Eyes General: appearance normal, both eyes and all related structures Neck Neck: Yes normal visual inspection and Yes trachea midline Chest Chest palpation & inspection: normal inspection of the chest Resp Effort & Inspection: normal respiratory effort and able to speak in complete sentences Cardio Rate: regular rate GI Inspection: Yes normal to inspection General: Yes no CVA tenderness Back/Spine/Pelvis Back: no CVA tenderness Skin General skin exam: no rashes or lesions noted Neuro General: patient oriented x3 Extrem General: Yes normal to inspection Psych Appearance: grossly normal and well kempt Mental Status: mental status grossly normal Speech and movement: Normal speech and movement present and Clear speech present Affect: normal affect Attitude: cooperative Thought process: Normal thought process present Thought content: Normal thought content present Insight: Fair insight present (Psych) Judgement: Fair judgement present (Psych) Results AMB Urinalysis, Automated UA Leukoctes 0 Haja/uL Last Edit by JAY Galeana on 09/30/25 15:16 UA Nitrite Negative Last Edit by JAY Galeana on 09/30/25 15:16 UA Urobilinogen 0.2 mg/dL Last Edit by JAY Galeana on 09/30/25 15:1 6 UA Protein 0 mg/dL Last Edit by JAY Galeana on 09/30/25 15:16 UA pH 6.0 Last Edit [facility]ene [facility] 09/30/25 15:16 UA Blood 0 Bandar/uL Last Edit by Rene Stack [facility] on 09/30/25 15:16 UA Specific [place] 1.005 Last Edit by Rene Stack [facility] on 09/30/25 15: 16 UA Ketone Negative Last Edit by Rene Stack [facility] on 09/30/25 15:16 UA Bilirubin 0 mg/dL Last Edit by Rene Stack [facility] on 09/30/25 15:16 UA Glucose 0 mg/dL Last Edit by Rene Stack [facility] on 09/30/25 15:16 Results Reviewed Results Reviewed: Laboratory Last Values Urine pH (Auto) 6.0 09/30/25 15:15 Specific [place] (Auto) 1.005 09/30/25 15:15 Urine Protein (Auto) 0 mg/dL 09/30/25 15:15 Glucose (UA)(Auto) 0 mg/dL 09/30/25 15:15 Urine Ketones (Auto) Negative 09/30/25 15:15 Urine Blood (Auto) 0 Bandar/uL 09/30/25 15:15 Urine Nitrite (Auto) Negative 09/30/25 15:15 Urine Bilirubin (Auto) 0 mg/dL 09/30/25 15:15 Urine Urobilinogen (Auto) 0.2 mg/dL 09/30/25 15:15 Leukocyte Esterase (Auto) 0 Haja/uL 09/30/25 15:15 Date of Service: 09/14/25 Procedure(s): US retroperitoneal comp Findings: Right kidney normal size and echotexture, 12 cm length. 1 cm renal cyst. Left kidney normal size and echotexture, 12.1 cm length. There are renal cysts measuring up to 3 cm in size. No collecting system dilatation of either kidney. Normal color Doppler. Urinary bladder is unremarkable. Prevoid volume 231 mL. Postvoid volume 46 mL. Bilateral ureteral jets are visualized. Prostate gland 5 x 4.3 x 5.2 cm in size with volume of 59 mL. There is a 1.3 cm cystic area of the prostate gland. IMPRESSION: No hydronephrosis. Prostatomegaly. Assessment & Plan Assessment & Plan (1) Elevated PSA: Code(s): R97.20 - Elevated prostate specific antigen [PSA] Category: Medical (2) Enlarged prostate: Code(s): N40.0 - Benign prostatic hyperplasia without lower urinary tract symptoms Category: Medical (3) Renal cyst: Code(s): N28.1 - Cyst of kidney, acquired Category: Medical Plan In office urinalysis results reviewed with the patient today; as noted above. Most recent retroperitoneal ultrasound results reviewed with the patient today; as noted above. Recent PSA results with the patient today; as noted above. We did discussed potential causes of previous elevated PSA. We also discussed further treatment options and risks and benefits of these treatment options. All questions were answered. He currently denies any bothersome urinary issues or concerns. He reports be happy with current voiding parameters. Will continue with surveillance monitoring. Follow-up in 6 months with PSA and PVR; or sooner with any issues, concerns, and or questions. Orders: Orders AMB Urinalysis Automated Today Z13.9 - Encounter for screening, unspecified Patient Instructions: The patient had an opportunity to ask questions regarding the treatment plan. All questions were answered. Physical exam, labs, and imaging were discussed and reviewed in detail. As well as risks, benefits, and discussion of treatment choices. No major barriers to understanding were identified. The patient expressed understanding and agreement with the above treatment plan. The patient was made aware they should contact our office by phone for worsening of their current condition, the appearance of new symptoms, or with any questions or concerns. Compliance is encouraged with any medications and follow up testing that is ordered. It is a privilege to be allowed the opportunity to participate in? your urological care.? Again, if you have any questions or concerns If you have any questions or concerns please do not hesitate to contact me. The office is [phone]. This note is constructed using voice recognition software. While every effort has been made to ensure accuracy blender helper errors may have been included. Yours sincerely, REN Hassan Coding Level of Care Code Est Pt Level 3 (32468) Complex EM visit Add On G2211 Diagnoses Elevated PSA R97.20 Enlarged prostate N40.0 Renal cyst N28.1
--- OUTSIDE RECORDS SUMMARY | 2025-09-30 18:03 | XMS_ITS | Clinical Summary ---
Author Organization [address] [facility] Address [address] [place] [place] [address] Phone Care Team Providers Care Prisoner Classification Interviewer Name Role Phone TyraSimon diaz DO Primary Care Provider [phone] Encounters Date Type Department Care Team Description 08/13/2025 Lab Requisition [facility] - Main Lab [address] [facility] [place] [address] Jayy Vazquez Urinary tract infection, [...] DTaP,Tdap,and Td Vaccines (1 - Tdap) 1974 RSV Immunization Adult Patients (1 - Risk 50-74 years 1-dose series) 2005 Zoster Vaccines (1 of 2) 2005 Abdominal Aortic Aneurysm (AAA) Screen 10/24/2022 Falls [...] 05/11/2025 10:09 AM EDT DM (diabetes mellitus) ([facility]/HCC V24, [facility] V28) Elevated PSA Smoker COPD (chronic obstructive pulmonary disease) ([facility]/HCC V24, [facility] V28) Asthma LIPID PANEL WITH REFLEX TO DIRECT LDL Routine 02/10/2025 1:36 PM EDT Routine general medical examination at a health care facility from Last 3 Months or Most Recently Relevant to Health Maintenance Results * Urinalysis with reflex microscopic (08/13/2025 12:00 AM EDT) Specific [place] Urine 1.007 1.003 - 1.030 LAB URINALYSIS - AUTOMATED METHOD 08/13/2025 8:[address] [facility] pH, Urine 5.5 5.0 - 8.0 pH LAB URINALYSIS - AUTOMATED METHOD 08/13/2025 8:[address] [facility] Leukocytes, Urine Negative Negative LAB URINALYSIS - AUTOMATED METHOD 08/13/2025 8:[address] [facility] Nitrite, Urine Negative Negative LAB URINALYSIS - AUTOMATED METHOD 08/13/2025 8:[address] [facility] Protein, Urine Negative <=Trace mg/dL LAB URINALYSIS - AUTOMATED METHOD 08/13/2025 8:[address] [facility] Glucose, Urine Negative Negative mg/dL LAB URINALYSIS - AUTOMATED METHOD 08/13/2025 8:[address] [facility] Ketones, Urine Negative Negative mg/dL LAB URINALYSIS - AUTOMATED METHOD 08/13/2025 8:[address] [facility] Urobilinogen, Urine 0.2 0.2 - 1.0 mg/dL LAB URINALYSIS - AUTOMATED METHOD 08/13/2025 8:[address] [facility] Bilirubin, Urine Negative Negative LAB URINALYSIS - AUTOMATED METHOD 08/13/2025 8:[address] [facility] Blood, Urine Negative Negative LAB URINALYSIS - AUTOMATED METHOD 08/13/2025 8:[address] [facility] Urine Urine specimen obtained by clean catch procedure / Unknown 08/13/2025 08/13/2025 7:44 PM EDT us Jayy Vazquez LAB URINE ORDERABLES Final Resul t [facility] [address] [place] [address], [place] [phone] * Culture urine (08/13/2025 12:00 AM EDT) [facility] Culture, Urine No growth 08/14/2025 2:07 PM EDT [facility] Urine Urine specimen obtained by clean catch procedure / Unknown 08/13/2025 08/13/2025 7:44 PM EDT Jayy Vazquez LAB MICROBIOLOGY - GENERAL ORDER MISAEL Final Result [facility] [address] [place] [address], [place] [phone] * (ABNORMAL) Basic metabolic panel (05/11/2025 10:09 AM EDT) [facility] Sodium 138 133 - 145 mmol/L LAB CHEMISTRY METHOD 05/11/2025 2:[address] [facility] Potassium 4.6 3.5 - 5.5 mmol/L LAB CHEMISTRY METHOD 05/11/2025 2:[address] [facility] Chloride 106 96 - 110 mmol/L LAB CHEMISTRY METHOD 05/11/2025 2:[address] [facility] CO2 27 21 - 32 mmol/L LAB CHEMISTRY METHOD 05/11/2025 2:[address] [facility] Anion Gap 5 3 - 11 LAB CHEMISTRY METHOD 05/11/2025 2:[address] [facility] Glucose 156(H) 70 - 100 mg/dL LAB CHEMISTRY METHOD 05/11/2025 2:[address] [facility] BUN 9 5 - 25 mg/dL LAB CHEMISTRY METHOD 05/11/2025 2:[address] [facility] Creatinine 0.80 0.70 - 1.30 mg/dL LAB CHEMISTRY METHOD 05/11/2025 2:[address] [facility] eGFR 95 >=60 mL/min/1. 73m2 LAB CHEMISTRY METHOD 05/11/2025 2:25 PM EDT [facility] Comment:Calculation based on the Chronic Kidney Disease Epidemiology Collaboration (CKD-EPI) equation refit without adjustment for race. BUN/Creatinine Ratio 11.3 LAB CHEMISTRY METHOD 05/11/2025 2:25 PM EDT [facility] Calcium 8.9 8.5 - 10.5 mg/dL LAB CHEMISTRY METHOD 05/11/2025 2:25 PM EDT [facility] Blood Venous blood specimen / Unknown Venipuncture / Unknown 05/11/2025 10:09 AM EDT 05/11/2025 10:09 AM EDT Jayy Vazquez LAB BLOOD ORDERABLES Final Resul t [facility] [address] [place] [address], * Lipid panel with reflex to direct LDL (02/10/2025 1:36 PM EDT) Cholesterol 163 0 - 200 mg/dL LAB CHEMISTRY METHOD 02/10/2025 3:51 PM EDT [facility] Triglycerides 74 0 - 150 mg/dL LAB CHEMISTRY METHOD 02/10/2025 3:51 PM EDT [facility] HDL 79 >=40 mg/dL LAB CHEMISTRY METHOD 02/10/2025 3:51 PM EDT [facility] LDL Calculated 69 0 - 100 mg/dL LAB CHEMISTRY METHOD 02/10/2025 3:51 PM EDT [facility] VLDL Cholesterol Stephen 14.8 mg/dL LAB CHEMISTRY METHOD 02/10/2025 3:51 PM EDT [facility] Non HDL Chol. (LDL+VLDL) 84 <145 mg/dL LAB CHEMISTRY METHOD 02/10/2025 3:51 PM EDT [facility] Chol/HDL Ratio 2.1 0.0 - 4.4 LAB CHEMISTRY METHOD 02/10/2025 3:51 PM EDT [facility] Blood Venous blood specimen / Unknown Venipuncture / Unknown 02/10/2025 1:36 PM EDT 02/10/2025 1:36 PM EDT us Jayy George LAB BLOOD ORDERABLES Final Resul t [facility] [address] [place] [address], [place] [phone] from Last 3 Months or Most Recently Relevant to Health Maintenance Insurance MEDICARE CARE [employer]OV[employer]US [facility] [employer] MEDICARE Care Teams Prisoner Classification Interviewer Relationship Specialty Start Date End Date Simon Mcwilliams DO [address] [place] [address] [place] [address] PCP - General Internal Medicine 10/16/17
--- OUTSIDE RECORDS SUMMARY | 2025-09-30 18:03 | XMS_ITS | Patient Health Record ---
Author Organization [facility] Address [address] [place] [address] Care Team Providers Care Nurses Assistant Name Role Phone NO, PCP Primary Care Provider Yanet Soriano Unavailable [phone] Reason For Referral No Information Plan Of Treatment No Information Insurance Providers Payer Name Payer Address Payer Phone Subscriber Number Group Number Insured Name Patient Relationship to Insured Coverage Start Date Coverage End Date Insurance Pending [address] [place] [id number] Tu Ramon Self - patient is the insured 4
--- OUTSIDE RECORDS SUMMARY | 2025-09-30 18:03 | XMS_ITS | Encounter Summary ---
Author Organization [facility] Address [address] [place] [address] Care Team Providers Care Computer Language Coder Name Role Phone TyraSimon diaz Primary Care Provider [phone] Encounter Details Date Type Department Care Team (Late st Contact Info) Description 08/13/2025 Lab Requisition [facility] - Main Lab [address] [facility] [place] [address] Jayy Vazquez [address] [place] [address] [place] [phone] Urinary tract infection, site [...] reflex microscopic (08/13/2025 12:00 AM EDT) Specific [place] Urine 1.007 1.003 - 1.030 LAB URINALYSIS - AUTOMATED METHOD 08/13/2025 8:17 PM EDT [facility] pH, Urine 5.5 5.0 - 8.0 pH LAB URINALYSIS - AUTOMATED METHOD 08/13/2025 8:17 PM [facility] Leukocytes, Urine Negative Negative LAB URINALYSIS - AUTOMATED METHOD 08/13/2025 8:17 PM [facility] Nitrite, Urine Negative Negative LAB URINALYSIS - AUTOMATED METHOD 08/13/2025 8:17 PM T [facility] Protein, Urine Negative <=Trace mg/dL LAB URINALYSIS - AUTOMATED METHOD 08/13/2025 8:17 PM [facility] Glucose, Urine Negative Negative mg/dL LAB URINALYSIS - AUTOMATED METHOD 08/13/2025 8:17 PM [facility] Ketones, Urine Negative Negative mg/dL LAB URINALYSIS - AUTOMATED METHOD 08/13/2025 8:17 PM [facility] Urobilinogen, Urine 0.2 0.2 - 1.0 mg/dL LAB URINALYSIS - AUTOMATED METHOD 08/13/2025 8:17 PM [facility] Bilirubin, Urine Negative Negative LAB URINALYSIS - AUTOMATED METHOD 08/13/2025 8:17 PM [facility] Blood, Urine Negative Negative LAB URINALYSIS - AUTOMATED METHOD 08/13/2025 8:17 PM [facility] Urine Urine specimen obtained by clean catch procedure / Unknown 08/13/2025 08/13/2025 7:44 PM EDT us Jayy Vazquez LAB URINE ORDERABLES Final Resul t [facility] [address] [place] [address], * Culture urine (08/13/2025 12:00 AM EDT) Culture, Urine No growth 08/14/2025 2:07 PM EDT [facility] Urine Urine specimen obtained by clean catch procedure / Unknown 08/13/2025 08/13/2025 7:44 PM EDT us Jayy Vazquez LAB MICROBIOLOGY - GENERAL ORDER MISAEL Final Result [facility] [address] [place] [address], documented in this encounter Visit Diagnoses Diagnosis Urinary tract infection, site not specified Hematuria, unspecified documented in this encounter Care Teams Computer Language Coder Relationship Specialty Start Date End Date Simon Mcwilliams DO [address] [place] [phone] PCP - General Internal Medicine 10/16/17 documented as of this encounter
== END 2025-09-30 15:40 | disposition home or self-care (01) ==
LOC: HO.HUSH 14:59
PROVIDERS: PCP Internal Medicine; Visit Provider Nurse Practitioner Family
DX: R97.20 Elevated prostate specific antigen [PSA] (principal); N40.0 Benign prostatic hyperplasia without lower urinary tract symptoms; N28.1 Cyst of kidney, acquired; Z13.9 Encounter for screening, unspecified
CPT/HCPCS: 99213; G2211

== ENCOUNTER → 2025-09-30 14:58 | Outpatient (BNVA) | payer MEDICARE, SELFPAY | PROVIDERS: PCP Internal Medicine; Visit Provider Nurse Practitioner Family | DX: R97.20 Elevated prostate specific antigen [PSA] (principal); N40.0 Benign prostatic hyperplasia without lower urinary tract symptoms; N28.1 Cyst of kidney, acquired; Z72.0 Tobacco use | CPT/HCPCS: 81003; 99212 ==